=== PATIENT | male | born 1940 | race Caucasian/White ===

== ENCOUNTER 2017-10-26 10:19 | Emergency (ER) | payer MEDICARE, MEDICAID ==
[2017-10-26] MEDS ORDERED: IPRATROPIUM/ALBUTEROL 0.5-2.5 MG/3 ML AMPUL NEB ONE (10:53)
--- NOTE | 2017-10-26 10:54 | ER Document Report ---
ED Medical Screen (RME) - General Chief Complaint: Cough Stated Complaint: COUGH Time Seen by Provider: 10/26/17 10:46 Mode of Arrival: Ambulatory Information source: Patient Notes: 77-year-old male history of COPD presents with intermittent productive cough for the past few days. Patient notes that he went to [facility] recently and since then has been having wheezing shortness of breath I have greeted and performed a rapid initial assessment of this patient. A comprehensive ED assessment and evaluation of the patient, analysis of test results and completion of the medical decision making process will be conducted by additional ED providers. PHYSICAL EXAMINATION: GENERAL: Well-appearing, well-nourished and in no acute distress. HEAD: Atraumatic, normocephalic. EYES: Pupils equal round extraocular movements intact, conjunctiva are normal. ENT: Nares patent NECK: Normal range of motion LUNGS: No respiratory distress Musculoskeletal: Normal range of motion NEUROLOGICAL: Normal speech, normal gait. PSYCH: Normal mood, normal affect. SKIN: Warm, Dry, normal turgor, no rashes or lesions noted. - Related Data Allergies/Adverse Reactions: No Known Allergies Allergy (Verified 10/26/17 10:22) Past Medical History - Social History Chew tobacco use (# tins/day): No Frequency of alcohol use: None Drug Abuse: None - Past Medical History Cardiac Medical History: Reports: Hx Hypercholesterolemia, Hx Hypertension Pulmonary Medical History: Reports: Hx COPD Endocrine Medical History: Reports: Hx Diabetes Mellitus Type 2 Renal/ Medical History: Denies: Hx Peritoneal Dialysis GI Medical History: Reports: Hx Gastroesophageal Reflux Disease Past Surgical History: Reports: Hx Cholecystectomy Physical Exam - Vital signs Vitals: Temp Pulse Resp BP Pulse Ox 97.8 F 72 18 131/63 H 97 10/26/17 10:24 10/26/17 10:24 10/26/17 10:24 10/26/17 10:24 10/26/17 10:24 Course - Vital Signs Vital signs: Temp Pulse Resp BP Pulse Ox 97.8 F 72 18 131/63 H 97 10/26/17 10:24 10/26/17 10:24 10/26/17 10:24 10/26/17 10:24 10/26/17 10:24
--- NOTE | 2017-10-26 11:31 | ER Document Report ---
ED General - General Chief Complaint: Cough Stated Complaint: COUGH Time Seen by Provider: 10/26/17 10:46 Mode of Arrival: Ambulatory Information source: Patient Notes: 77-year-old male presents emergency department history of chills, rhinorrhea, sore throat, dry cough, generalized weakness x 10 days. Symptoms started while in [place]. Patient thinks that he might be developing pneumonia. He does have a history of COPD. He is not on any home oxygen. He uses albuterol inhaler as needed. Patient denies any chest pain. He has had some intermittent shortness of breath. No alleviating or exacerbating factors. TRAVEL OUTSIDE OF THE [place] IN LAST 30 DAYS: No - HPI Onset: Last week Onset/Duration: Gradual Quality of pain: No pain Severity: None Pain Level: Denies Associated symptoms: Chills, Nonproductive cough, Rhinnorhea, Shortness of breath, Sore throat, Weakness Exacerbated by: Denies Relieved by: Denies Similar symptoms previously: No Recently seen / treated by doctor: No - Related Data Allergies/Adverse Reactions: No Known Allergies Allergy (Verified 10/26/17 10:22) Past Medical History - General Information source: Patient - Social History Smoking Status: Former Smoker Chew tobacco use (# tins/day): No Frequency of alcohol use: None Drug Abuse: None Family History: Reviewed & Not Pertinent Patient has suicidal ideation: No Patient has homicidal ideation: No - Past Medical History Cardiac Medical History: Reports: Hx Hypercholesterolemia, Hx Hypertension Pulmonary Medical History: Reports: Hx COPD Endocrine Medical History: Reports: Hx Diabetes Mellitus Type 2 Renal/ Medical History: Denies: Hx Peritoneal Dialysis GI Medical History: Reports: Hx Gastroesophageal Reflux Disease Past Surgical History: Reports: Hx Cholecystectomy Review of Systems - Review of Systems Constitutional: Chills EENT: Nose congestion, Sinus discharge, Throat pain Respiratory: Cough, Short of breath Gastrointestinal: No symptoms reported Genitourinary: No symptoms reported Musculoskeletal: No symptoms reported Skin: No symptoms reported Neurological/Psychological: No symptoms reported -: Yes All other systems reviewed and negative Physical Exam - Vital signs Vitals: Temp Pulse Resp BP Pulse Ox 97.8 F 72 18 131/63 H 97 10/26/17 10:24 10/26/17 10:24 10/26/17 10:24 10/26/17 10:24 10/26/17 10:24 Interpretation: Normal - Notes Notes: PHYSICAL EXAMINATION: GENERAL: Well-appearing, well-nourished and in no acute distress. HEAD: Atraumatic, normocephalic. EYES: Pupils equal round and reactive to light, extraocular movements intact, sclera anicteric, conjunctiva are normal. ENT: Nares patent, oropharynx clear without exudates. Moist mucous membranes. NECK: Normal range of motion, supple without lymphadenopathy LUNGS: Breath sounds clear to auscultation bilaterally and equal. No wheezes rales or rhonchi. HEART: Regular rate and rhythm without murmurs ABDOMEN: Soft, nontender, nondistended abdomen. No guarding, no rebound. No masses appreciated. Musculoskeletal: Normal range of motion, no pitting or edema. No cyanosis. NEUROLOGICAL: Cranial nerves grossly intact. Normal speech, normal gait. Normal sensory, motor exams PSYCH: Normal mood, normal affect. SKIN: Warm, Dry, normal turgor, no rashes or lesions noted. Course - Vital Signs Vital signs: Temp Pulse Resp BP Pulse Ox 97.8 F 72 18 105/66 97 10/26/17 10:24 10/26/17 10:24 10/26/17 15:47 10/26/17 14:01 10/26/17 14:23 - Laboratory Result Diagrams: 10/26/17 11:05 10/26/17 11:05 Laboratory results interpreted by me: 10/26/17 10/26/17 10/26/17 11:05 11:05 12:27 RBC 3.95 L Hgb 12.5 L Hct 36.5 L Seg Neutrophils % 78.1 H Lymphocytes % 9.6 L D-Dimer 1.14 H Sodium 134.4 L Potassium 5.1 H Creatinine 1.35 H Est GFR (Non-Af Amer) 51 L Glucose 143 H Total Bilirubin 1.4 H Urine Glucose (UA) 10/26/17 12:45 RBC Hgb Hct Seg Neutrophils % Lymphocytes % D-Dimer Sodium Potassium Creatinine Est GFR (Non-Af Amer) Glucose Total Bilirubin Urine Glucose (UA) 50 H - EKG Interpretation by [place] EKG shows normal: Sinus rhythm Rate: Normal Rhythm: NSR Additional EKG results interpreted by me: 10/26/17 11:31 IA interval 168, QRS duration 102, QTc 434, ventricular rate 64, sinus rhythm, no ischemic changes. Discharge - Discharge Clinical Impression: Bronchitis Condition: Good Disposition: HOME, SELF-CARE Instructions: Bronchitis ([facility]) Prescriptions: Benzonatate [Tessalon Perles 100 mg Capsule] 100 mg PO Q8HP PRN #15 capsule PRN Reason: Azithromycin [Zithromax 250 mg Tablet] 250 mg PO ASDIR PRN #6 tablet PRN Reason: Prednisone 50 mg PO DAILY 5 Days #5 tablet Referrals: JULIANNA MELÉNDEZ MD [ACTIVE STAFF] - Follow up as needed
[2017-10-26 11:36] LABS: ABSOLUTE EOSINOPHILS # (AUTO) 0.1 10^3/uL (0.0-0.6); ABSOLUTE LYMPHOCYTES (AUTO) 0.8 10^3/uL (0.5-4.7); ABSOLUTE MONOCYTES (AUTO) 0.9 10^3/uL (0.1-1.4); ABSOLUTE NEUT (AUTO) 6.4 10^3/uL (1.7-8.2); BASOPHILS % (AUTO) 0.3 % (0-2); EOSINOPHILS % (AUTO) 1.6 % (0-6); HEMATOCRIT 36.5 % (37.9-51.0); HEMOGLOBIN 12.5 g/dL (13.5-17.0); LYMPHOCYTES % (AUTO) 9.6 % (13-45); MEAN CORPUSCULAR HEMOGLOBIN 31.6 pg (27.0-33.4); MEAN CORPUSCULAR HGB CONC 34.3 g/dL (32.0-36.0); MEAN CORPUSCULAR VOLUME 92 fl (80-97); MONOCYTES % (AUTO) 10.4 % (3-13); PLATELET COUNT 220 10^3/uL (150-450); RED BLOOD COUNT 3.95 10^6/uL (4.35-5.55); RED CELL DISTRIBUTION WIDTH 13.8 % (11.5-14.0); SEGMENTED NEUTROPHILS % (AUTO) 78.1 % (42-78); TOTAL CELLS COUNTED % (AUTO) 100 %; WHITE BLOOD COUNT 8.2 10^3/uL (4.0-10.5)
[2017-10-26 11:56] LABS: ALANINE AMINOTRANSFERASE 28 U/L (21-72); ALBUMIN 3.9 g/dL (3.5-5.0); ALKALINE PHOSPHATASE 62 U/L (38-126); ANION GAP 9 (5-19); ASPARTATE AMINO TRANSFERASE 19 U/L (17-59); BILIRUBIN,DIRECT 0.4 mg/dL (0.0-0.4); BILIRUBIN,TOTAL 1.4 mg/dL (0.2-1.3); BLOOD UREA NITROGEN 20 mg/dL (7-20); CALCIUM 9.6 mg/dL (8.4-10.2); CARBON DIOXIDE 25 mmol/L (22-30); CHLORIDE 100 mmol/L (98-107); CREATINE KINASE 73 U/L (55-170); GLUCOSE 143 mg/dL (75-110); POTASSIUM 5.1 mmol/L (3.6-5.0); SODIUM 134.4 mmol/L (137-145); TOTAL PROTEIN 6.8 g/dL (6.3-8.2)
[2017-10-26 12:12] LABS: CREATINE KINASE MB 0.96 ng/mL (<4.55); TROPONIN I < 0.012 ng/mL
--- NOTE | 2017-10-26 12:48 | RADIOLOGY REPORT (SQ) ---
EXAM DESCRIPTION: CHEST 2 VIEWS COMPLETED DATE/TIME: 10/26/2017 12:37 pm REASON FOR STUDY: shortness of breath COMPARISON: None. NUMBER OF VIEWS: Two view. TECHNIQUE: Frontal and lateral radiographic views of the chest acquired. LIMITATIONS: None. FINDINGS: LUNGS AND PLEURA: Chronic interstitial changes. No infiltrates, masses or pneumothorax. N o pleural effusion. Attenuated blood vessels and flattened sanjnaa-diaphragms. MEDIASTINUM AND HILAR STRUCTURES: No masses. No contour abnormalities. HEART AND VASCULAR STRUCTURES: Heart normal in size and contour. No evidence for failure. BONES: No acute findings. Degenerative changes in the spine. Sclerosis in the proximal left humerus probably due to an enchondroma or old bone infarct. HARDWARE: None in the chest. OTHER: No other significant finding. IMPRESSION: COPD. NO ACUTE RADIOGRAPHIC FINDING IN THE CHEST. TECHNICAL DOCUMENTATION: JOB ID: [id number] [email or web address]- All Rights Reserved Reading location - IP/workstation name: [email or web address]
[2017-10-26 12:59] LABS: APPEARANCE,URINE CLEAR; BILIRUBIN,URINE NEGATIVE (NEGATIVE); COLOR,URINE YELLOW; GLUCOSE, URINE 50 mg/dL (NEGATIVE); KETONES,URINE NEGATIVE (NEGATIVE); LEUKOCYTE ESTERASE,URINE NEGATIVE (NEGATIVE); NITRITE,URINE NEGATIVE (NEGATIVE); PROTEIN,URINE NEGATIVE (NEGATIVE); URINE SPECIFIC GRAVITY 1.008; UROBILINOGEN,URINE NEGATIVE mg/dL (<2.0)
[2017-10-26] MEDS ORDERED: NORMAL SALINE 500 ML IV ONE (13:01)
--- NOTE | 2017-10-26 16:12 | RADIOLOGY REPORT (SQ) ---
EXAM DESCRIPTION: NM LUNG VENT/PERF SCAN COMPLETED DATE/TIME: 10/26/2017 4:00 pm REASON FOR STUDY: shortness of breath COMPARISON: Chest films from earlier. RADIONUCLIDE AND DOSE: 5.36 millicuries TC-99m MAA Intravenous 31.8 millicuries TC-99m DTPA Inhaled aerosol TECHNIQUE: Eight views of the lungs acquired post ventilation of DTPA aerosol. Eight matching views of the lungs acquired following injection of MAA. LIMITATIONS: None. FINDINGS: VENTILATION: Symmetric and homogeneous distribution of DTPA aerosol during ventilatory pha se. No significant areas of photopenia. PERFUSION: Perfusion images with normal homogenous activity and no wedge-shaped or segmental defects. No ventilation-perfusion mismatches. OTHER: No other significant finding. IMPRESSION: NORMAL VENTILATION-PERFUSION LUNG SCAN. NEGATIVE FOR PULMONARY EMBOLI. TECHNICAL DOCUMENTATION: JOB ID: [id number] [employer]- All Rights Reserved Reading location - IP/workstation name: [email or web address]
[2017-10-26 16:30] VITALS: BP 128/74
--- NOTE | 2017-10-26 21:19 | EKG REPORT ---
SEVERITY:- OTHERWISE NORMAL ECG - SINUS RHYTHM VENTRICULAR PREMATURE COMPLEX : Confirmed by: Kaitlin Peters 26-Oct-2017 21:19:07
--- NOTE | 2017-10-26 21:20 | EKG REPORT ---
SEVERITY:- NORMAL ECG - SINUS RHYTHM : Confirmed by: Kaitlin Peters 26-Oct-2017 21:18:57
== END 2017-10-26 16:41 | disposition home or self-care (01) ==
LOC: ER 10:19
DX: J40 Bronchitis, not specified as acute or chronic (principal); R05 Cough; J34.89 Other specified disorders of nose and nasal sinuses; J02.9 Acute pharyngitis, unspecified; R53.1 Weakness; J44.9 Chronic obstructive pulmonary disease, unspecified; R09.81 Nasal congestion; R09.89 Other specified symptoms and signs involving the circulatory and respiratory systems; R06.02 Shortness of breath; Z99.81 Dependence on supplemental oxygen; Z87.891 Personal history of nicotine dependence; I10 Essential (primary) hypertension; E11.9 Type 2 diabetes mellitus without complications
CPT/HCPCS: 93005; 94640; 99284; 36415; 82553; 82550; 85025; 80053; 81001; 84484; 85379; 71046; 78582; 93010; A9540; A9567; J7040; A9270; J7620

== ENCOUNTER 2017-11-19 09:00 | Day surgery (SDC) | payer MEDICARE, MEDICAID ==
[~2017-11-19 09:00] MED LIST: DIPHENHYDRAMINE HCL 50 MG/ML VIAL ONE; EPINEPHRINE INJ 1 MG/10 ML DISP.SYRIN ONE; FLUMAZENIL INJ 0.5 MG/5 ML VIAL ONE; GLUCAGON,HUMAN RECOMB 1 MG INJ ONE; NALOXONE HCL INJ/PF 0.4 MG/1 ML SDV ONE; ONDANSETRON HCL INJ/PF 4 MG/2 ML SDV ONE
[2017-11-19] MEDS: MIDAZOLAM 2 MG/2 ML INJ ONE ×2 (09:24→09:30)
[2017-11-19] MEDS: FENTANYL CITRATE INJ/PF 100 MCG/2 ML AMPUL ONE ×2 (09:26→09:28)
--- NOTE | 2017-11-19 09:42 | Operative Report ---
Operative Report DATE OF SURGERY: 11/19/17 Operative Report: The risks benefits and alternatives of the procedure explained to the patient in detail and informed consent is obtained.A GIF Olympus video scope was inserted into the patient's mouth and hypopharynx, the esophagus is identified intubated and insufflated, the scope was then advanced through the esophagus stomach and duodenum, retroflexion maneuver is done, the esophagus stomach and first and second portions of the duodenum examined PREOPERATIVE DIAGNOSIS: Parish's esophagus, gastroesophageal reflux disease POSTOPERATIVE DIAGNOSIS: Gastritis status post biopsy. Hiatal hernia. Some islands of Parish's esophagus status post radiofrequency ablation OPERATION: EGD with ablation. EGD with biopsy SURGEON: VISHAL WEBER ANESTHESIA: Moderate Sedation - 4 mg of Versed, 50 mcg of fentanyl. Conscious sedation monitoring time 30 minutes. TISSUE REMOVED OR ALTERED: As noted above. COMPLICATIONS: None. ESTIMATED BLOOD LOSS: None. INTRAOPERATIVE FINDINGS: As noted above. PROCEDURE: Patient tolerated procedure well. No immediate postprocedure complications are noted. Patient discharged in good condition. Discharge date 11/19/2017. Discharge diet: Regular. Discharge activity: Regular. 2-3 week follow-up to discuss findings. Patient is instructed to call the office or proceed to the emergency room should there be any further problems or questions. We will wait on the pathology.
[2017-11-19 10:44] VITALS: BP 121/60
== END 2017-11-19 10:45 | disposition home or self-care (01) ==
LOC: END 09:00
PROVIDERS: ATTEND Internal Medicine Gastroenterology
DX: K29.50 Unspecified chronic gastritis without bleeding (principal); K22.719 Barrett's esophagus with dysplasia, unspecified; K44.9 Diaphragmatic hernia without obstruction or gangrene; K21.9 Gastro-esophageal reflux disease without esophagitis; E78.5 Hyperlipidemia, unspecified; E11.9 Type 2 diabetes mellitus without complications; M19.90 Unspecified osteoarthritis, unspecified site; K76.0 Fatty (change of) liver, not elsewhere classified; Z13.89 Encounter for screening for other disorder; I51.9 Heart disease, unspecified; J43.9 Emphysema, unspecified; Z87.891 Personal history of nicotine dependence; Z95.1 Presence of aortocoronary bypass graft
CPT/HCPCS: 43270; 43239; 82962; 88342 ×2; 88305 ×2; J2250; J3010; J0171; J1200; J1610; J2310; J2405; J3490

== ENCOUNTER → 2018-01-27 | Outpatient (CLI) | payer MEDICARE, MEDICAID ==
--- NOTE | 2018-01-27 14:39 | RADIOLOGY REPORT (SQ) ---
EXAM DESCRIPTION: CT CHEST WITHOUT COMPLETED DATE/TIME: 01/27/2018 2:25 pm REASON FOR STUDY: DYSPNEA R06.00 DYSPNEA, UNSPECIFIED COMPARISON: None. TECHNIQUE: CT scan performed of the chest without intravenous contrast. Images reviewed with lung, soft tissue and bone windows. Reconstructed coronal and sagittal MPR images reviewed. All images st ored on PACS. All CT scanners at this facility use dose modulation, iterative reconstruction, and/or weight based d osing when appropriate to reduce radiation dose to as low as reasonably achievable (ALARA). [facility]: Dose Right [facility]: CareDose [facility]: Dose Right [facility]: Teradose 4D [facility]: 37coins RADIATION DOSE: CT Rad equipment meets quality standard of care and radiation dose reduction techniq ues were employed. CTDIvol: 11.4 mGy. DLP: 460 mGy-cm. mGy. LIMITATIONS: No technical limitations. FINDINGS: LUNGS AND PLEURA: Centrilobular and paraseptal emphysema fairly symmetric. No suspicious nodules. No effusions. HILAR AND MEDIASTINAL STRUCTURES: No identified masses or abnormal nodes. No obvious aneurysm. HEART AND VASCULAR STRUCTURES: No aneurysm. No pericardial effusion. UPPER ABDOMEN: No significant findings. Limited exam. THYROID AND OTHER SOFT TISSUES: No masses. No adenopathy. BONES: No significant finding. HARDWARE: None in the chest. OTHER: No other significant findings. IMPRESSION: COPD. No acute findings in the chest. TECHNICAL DOCUMENTATION: JOB ID: [id number] Quality ID # [id number]: Final reports with documentation of one or more dose reduction techniques (e.g., Au tomated exposure control, adjustment of the mA and/or kV according to patient size, use of iterative reconstruction technique) 2010 [employer]- All Rights Reserved Reading location - IP/workstation name: [email or web address]
== END ==
LOC: RAD 14:14
PROVIDERS: ATTEND Physician Assistant
DX: R06.00 Dyspnea, unspecified (principal)
CPT/HCPCS: 71250

== ENCOUNTER → 2018-06-17 | Outpatient (CLI) | payer MEDICARE, MEDICAID ==
--- NOTE | 2018-06-18 09:05 | RADIOLOGY REPORT (SQ) ---
EXAM DESCRIPTION: MRI HEAD COMBO COMPLETED DATE/TIME: 06/17/2018 8:47 pm REASON FOR STUDY: H90.42 SNSRNRL HEAR LOSS, UNI, LEFT EAR, W UNRESTR HEAR CNTRA SIDE H90.42 SNSRNRL HEAR LOSS, UNI, LEFT EAR, W UNRESTR HEAR CNTR COMPARISON: None. TECHNIQUE: Multiplanar imaging includes noncontrasted T1, T2, FLAIR, diffusion with ADC map and post gadolinium contrast T1 sequences. Images stored on PACS. Additional thin section axial T2 and axial and coronal pre and postcontrast T1 weighted images throug h the internal auditory canals and inner ear structures. CONTRAST TYPE AND DOSE: 8 mL Dotarem. RENAL FUNCTION: GFR 38 LIMITATIONS: None. FINDINGS: ANATOMY: No anomalies. Normal vascular flow voids. Pituitary fossa normal. CSF SPACES: Normal in size and contour. No hemorrhage. CEREBRUM: Sulci and gyri normal in size and contour. Age-appropriate minimal biparietal small vessel disease with increased white matter signal on FLAIR imaging. No evidence of hemorrhage, mass, or ext raaxial fluid collection. No abnormal enhancement post contrast. POSTERIOR FOSSA: No signal alteration. No hemorrhage. No edema, masses, or mass effect. Internal kaylin tory canals, cerebellopontine angles normal. However, there is a right middle ear effusion and masto id effusion DIFFUSION IMAGING: Negative for acute or subacute infarction. ORBITS: No masses. Globes normal. PARANASAL SINUSES: No fluid levels. Mucosa normal. OTHER: No other significant finding. IMPRESSION: Large right middle ear and mastoid effusion No abnormal masses or enhancement along the internal auditory canals or inner ear structures Remainder the brain parenchyma is otherwise unremarkable EVIDENCE OF ACUTE STROKE: NO. TECHNICAL DOCUMENTATION: JOB ID: [id number] [employer]- All Rights Reserved Reading location - IP/workstation name: [email or web address]
== END ==
LOC: RAD 19:58
PROVIDERS: ATTEND Otolaryngology
DX: H90.42 Sensorineural hearing loss, unilateral, left ear, with unrestricted hearing on the contralateral side (principal)
CPT/HCPCS: 70553; 82565

== ENCOUNTER 2018-07-07 10:29 | Inpatient (IN) | payer MEDICARE, MEDICAID ==
[2018-07-07] MEDS ORDERED: ONDANSETRON HCL INJ/PF 4 MG/2 ML SDV IV ONE (11:11)
[2018-07-07] MEDS ORDERED: LOPERAMIDE HCL 2 MG CAPSULE PO ONE (11:11)
[2018-07-07] MEDS ORDERED: NORMAL SALINE 1000 ML 1,000 ML IV ONE ×2 (11:11→13:00)
[2018-07-07] MEDS ORDERED: ASPIRIN 81 MG TABLET, CHEWABLE PO ONE (11:11)
--- NOTE | 2018-07-07 11:54 | RADIOLOGY REPORT (SQ) ---
EXAM DESCRIPTION: CHEST SINGLE VIEW COMPLETED DATE/TIME: 07/07/2018 11:44 am REASON FOR STUDY: SOB, cough COMPARISON: CT chest 01/27/2018 Chest films 10/26/2017 EXAM PARAMETERS: NUMBER OF VIEWS: One view. TECHNIQUE: Single frontal radiographic view of the chest acquired. RADIATION DOSE: NA LIMITATIONS: None. FINDINGS: LUNGS AND PLEURA: Marked changes of obstructive lung disease. Stable bibasilar increased interstitial markings. No acute infiltrates. No pleural effusion. No pneumothorax. MEDIASTINUM AND HILAR STRUCTURES: No masses. Contour normal. HEART AND VASCULAR STRUCTURES: Heart normal in size. Normal vasculature. BONES: Benign chondroid lesion left proximal humerus HARDWARE: None in the chest. OTHER: No other significant finding. IMPRESSION: Obstructive lung disease. No acute findings TECHNICAL DOCUMENTATION: JOB ID: [id number] [employer]- All Rights Reserved Reading location - IP/workstation name: [email or web address]
[2018-07-07 11:59] LABS: HEMATOCRIT 45.4 % (37.9-51.0); HEMOGLOBIN 15.6 g/dL (13.5-17.0); MEAN CORPUSCULAR HEMOGLOBIN 31.6 pg (27.0-33.4); MEAN CORPUSCULAR HGB CONC 34.3 g/dL (32.0-36.0); MEAN CORPUSCULAR VOLUME 92 fl (80-97); PLATELET COUNT 259 10^3/uL (150-450); RED BLOOD COUNT 4.93 10^6/uL (4.35-5.55); RED CELL DISTRIBUTION WIDTH 14.3 % (11.5-14.0); WHITE BLOOD COUNT 24.6 10^3/uL (4.0-10.5)
[2018-07-07 12:18] LABS: ALANINE AMINOTRANSFERASE 49 U/L (21-72); ALBUMIN 3.9 g/dL (3.5-5.0); ALKALINE PHOSPHATASE 97 U/L (38-126); ANION GAP 15 (5-19); ASPARTATE AMINO TRANSFERASE 25 U/L (17-59); BILIRUBIN,DIRECT 0.2 mg/dL (0.0-0.4); BILIRUBIN,TOTAL 1.5 mg/dL (0.2-1.3); BLOOD UREA NITROGEN 32 mg/dL (7-20); CALCIUM 9.2 mg/dL (8.4-10.2); CARBON DIOXIDE 19 mmol/L (22-30); CHLORIDE 99 mmol/L (98-107); CREATINE KINASE 53 U/L (55-170); GLUCOSE 207 mg/dL (75-110); LIPASE 27.8 U/L (23-300); POTASSIUM 4.8 mmol/L (3.6-5.0); SODIUM 132.8 mmol/L (137-145); TOTAL PROTEIN 6.5 g/dL (6.3-8.2)
[2018-07-07 12:21] LABS: ABSOLUTE LYMPHOCYTES# (MANUAL) 0.2 10^3/uL (0.5-4.7); ABSOLUTE NEUTROPHILS# (MANUAL) 22.4 10^3/uL (1.7-8.2); BASOPHILS % (MANUAL) 0 % (0-2); EOSINOPHILS % (MANUAL) 0 % (0-6); LYMPHOCYTES % (MANUAL) 1 % (13-45); MONOCYTES % (MANUAL) 8 % (3-13); SEGMENTED NEUTROPHILS % (MAN) 91 % (42-78); TOTAL CELLS COUNTED 100
[2018-07-07 12:23] LABS: ANISOCYTOSIS SLIGHT; BURR CELLS SLIGHT; OVALOCYTES SLIGHT; PLATELET COMMENT ADEQUATE; POIKILOCYTOSIS SLIGHT; POLYCHROMASIA SLIGHT
[2018-07-07 12:29] LABS: CREATINE KINASE MB 1.42 ng/mL (<4.55)
[2018-07-07 12:34] LABS: TROPONIN I < 0.012 ng/mL
--- NOTE | 2018-07-07 12:58 | ER Document Report ---
ED General - General Chief Complaint: Shortness Of Breath Stated Complaint: WEAKNESS Time Seen by Provider: 07/07/18 11:04 Mode of Arrival: Wheelchair Notes: 78M w COPD on 2.5L O2 at night, CAD s/p stent in 2013, NIDDM presents to ED for c/c nausea, vomiting, diarrhea x 3 days. Started w diarrhea then progressed to nausea/vomiting. Cannot hold any liquid or food down at all including medications. Pt also c/o SOB due to weakness and fatigue. No previous COPD exacerbations requiring hospitalization. Pt also with recent dx of acute sinusitis currently on abx, day ~11/15. Of note, pt has chronic left leg swelling. Patient denies fevers or chills. Patient denies headache. No chest pain. Patient denies any current sinus pressure. Patient has no other complaints. TRAVEL OUTSIDE OF THE [place] IN LAST 30 DAYS: No - Related Data Allergies/Adverse Reactions: No Known Allergies Allergy (Verified 07/07/18 10:34) Past Medical History - General Information source: Patient - Social History Smoking Status: Current Every Day Smoker Family History: Reviewed & Not Pertinent Patient has suicidal ideation: No Patient has homicidal ideation: No - Past Medical History Cardiac Medical History: Reports: Hx Atrial Fibrillation, Hx Hyp ercholesterolemia, Hx Hypertension Denies: Hx Coronary Artery Disease, Hx Heart Attack Pulmonary Medical History: Reports: Hx COPD Denies: Hx Pneumonia - HX Neurological Medical History: Denies: Hx Cerebrovascular Accident, Hx Seizures Endocrine Medical History: Reports: Hx Diabetes Mellitus Type 2 Renal/ Medical History: Denies: Hx Peritoneal Dialysis GI Medical History: Reports: Hx Gastroesophageal Reflux Disease Musculoskeletal Medical History: Reports Hx Arthritis - HIPS, BACK Past Surgical History: Reports: Hx Cardiac Catheterization - stent, Hx Cholecystectomy, Hx Orthopedic Surgery, Hx Tonsillectomy - Immunizations Hx Diphtheria, Pertussis, Tetanus Vaccination: Yes Review of Systems - Review of Systems Constitutional: See HPI EENT: See HPI Cardiovascular: See HPI Respiratory: See HPI Gastrointestinal: See HPI Genitourinary: No symptoms reported Male Genitourinary: No symptoms reported Musculoskeletal: No symptoms reported Skin: No symptoms reported Hematologic/Lymphatic: No symptoms reported Neurological/Psychological: No symptoms reported Physical Exam - Vital signs Vitals: Resp Pulse Ox 24 H 96 07/07/18 11:54 07/07/18 11:54 - Notes Notes: PHYSICAL EXAMINATION: Reviewed vital signs and charting by RN GENERAL: Alert, interacts well. No acute distress. Well-appearing HEAD: Normocephalic, atraumatic. EYES: Pupils equal, round. Extraocular movements intact. ENT: Oral mucosa dry, tongue midline. NECK: Full range of motion. Supple. Trachea midline. LUNGS: Clear to auscultation bilaterally, no wheezes, rales, or rhonchi. No respiratory distress. HEART: Regular rate and rhythm. No murmur ABDOMEN: soft, non-tender. Non-distended. Bowel sounds present in all 4 quadrants. no McBurney's point tenderness, no Hinton sign. EXTREMITIES: Moves all 4 extremities spontaneously. No edema, No cyanosis. PSYCH: Normal affect, normal mood. SKIN: Warm, dry, normal turgor. No rashes or lesions noted. Course - Re-evaluation Re-evalutation: 07/07/18 12:59 Well-appearing male presents with acute episode of nausea vomiting diarrhea. Patient received Zofran and reports feeling better. I called Dr. Mannie Ambrose, his insole tack puller hand, to obtain results from recent echo and Dr. Ambrose reported over the phone that his ejection fraction was 60-65% with mild aortic root dilatation. With this information I will give the patient 1 L of fluids. On exam lungs were clear to auscultation bilaterally in all [place] 07/07/18 15:58 Patient ultimately received 2 L of normal saline. I called hospitalist to discuss admission as patient is C. difficile positive and has a white count of 24,600. Wiliam Maurer PA-C, went and saw patient and accepted patient for full admission. - Vital Signs Vital signs: Temp Pulse Resp BP Pulse Ox 98.0 F 80 18 129/67 H 95 07/07/18 17:58 07/07/18 17:58 07/07/18 17:58 07/07/18 17:58 07/07/18 17:58 - Laboratory Result Diagrams: 07/07/18 11:23 07/07/18 11:23 Laboratory results interpreted by me: 07/07/18 07/07/18 11:23 11:23 WBC 24.6 H RDW 14.3 H Seg Neuts % (Manual) 91 H Lymphocytes % (Manual) 1 L Abs Neuts (Manual) 22.4 H Abs Lymphs (Manual) 0.2 L Abs Monocytes (Manual) 2.0 H Sodium 132.8 L Carbon Dioxide 19 L BUN 32 H Creatinine 2.32 H Est GFR ( Amer) 33 L Est GFR (Non-Af Amer) 27 L Glucose 207 H Total Bilirubin 1.5 H Creatine Kinase 53 L Discharge - Discharge Clinical Impression: C. difficile diarrhea, Weakness Vomiting Qualifiers: Vomiting type: unspecified Vomiting Intractability: non-intractable Nausea presence: with nausea Qualified Code(s): R11.2 - Nausea with vomiting, unspecified Condition: Good Disposition: ADMITTED INPATIENT Unit Admitted: Telemetry
--- NOTE | 2018-07-07 14:05 | ER Document Report ---
Entered by CONTRERAS ESCALONA SCRIBE 07/07/18 1143 Acting as scribe for:SHIVA CALHOUN DO ED Medical Screen (RME) - General Chief Complaint: Shortness Of Breath Stated Complaint: WEAKNESS Time Seen by Provider: 07/07/18 11:04 Primary Care Provider: TRE FELIZ DO [Primary Care Provider] - Follow up as needed Mode of Arrival: Wheelchair Information source: Patient Notes: Patient is a 78-year-old male with COPD, heart disease, diabetes type 2, presents to the emergency department complaining of nausea, vomiting and diarrhea onset 3 days ago. Patient states he initially had diarrhea 3 days ago and developed nausea and vomiting 1 day ago. He states he is unable to keep any solids or liquids down. He also complains of abdominal pain and increased shortness of breath. Patient reports currently being on antibiotics for recent sinus infection. He states he is on 2.5 L of O2 at night. He also reports chronic left leg swelling. I have greeted and performed a rapid initial assessment of the patient. A comprehensive ED assessment and evaluation of the patient, analysis of test results, and completion of the medical decision making process will be conducted by additional ED providers. GENERAL: Alert, interacts well. No acute distress. HEAD: Normocephalic, atraumatic. EYES: Pupils equal, round, and reactive to light. Extraocular movements intact. ENT: Oral mucosa moist, tongue midline. Clear rhinorrhea from right nostril. NECK: Full range of motion. Supple. Trachea midline. LUNGS: Clear to auscultation bilaterally, no wheezes, rales, or rhonchi. No respiratory distress. HEART: Regular rate and rhythm. No murmurs, gallops, or rubs. EXTREMITIES: Moves all 4 extremities spontaneously. 1+ pitting edema of the LLE. NEUROLOGICAL: Alert and oriented x3. Normal speech. PSYCH: Normal affect, normal mood. SKIN: Warm, dry, normal turgor. No rashes or lesions noted. TRAVEL OUTSIDE OF THE [place] IN LAST 30 DAYS: No - Related Data Allergies/Adverse Reactions: No Known Allergies Allergy (Verified 07/07/18 10:34) Past Medical History - Past Medical History Cardiac Medical History: Reports: Hx Atrial Fibrillation, Hx Hypercholesterolemia, Hx Hypertension Denies: Hx Coronary Artery Disease, Hx Heart Attack Pulmonary Medical History: Reports: Hx COPD Denies: Hx Pneumonia - HX Neurological Medical History: Denies: Hx Cerebrovascular Accident, Hx Seizures Endocrine Medical History: Reports: Hx Diabetes Mellitus Type 2 Renal/ Medical History: Denies: Hx Peritoneal Dialysis GI Medical History: Reports: Hx Gastroesophageal Reflux Disease Musculoskeltal Medical History: Reports Hx Arthritis - HIPS, BACK Past Surgical History: Reports: Hx Cardiac Catheterization - stent, Hx Cholecystectomy, Hx Orthopedic Surgery, Hx Tonsillectomy - Immunizations Hx Diphtheria, Pertussis, Tetanus Vaccination: Yes Influenza Administration Date for 02/2017 - 07/2017 Season: 02/02/17 Doctor's Discharge - Discharge Referrals: TRE FELIZ DO [Primary Care Provider] - Follow up as needed I personally performed the services described in the documentation, reviewed and edited the documentation which was dictated to the scribe in my presence, and it accurately records my words and actions.
[2018-07-07] MEDS ORDERED: ACETAMINOPHEN 325 MG TABLET PO PRN (16:09)
[2018-07-07] MEDS ORDERED: ONDANSETRON 4 MG TAB.RAPDIS PO PRN (16:09)
[2018-07-07] MEDS ORDERED: DEXTROSE 40% GEL 15 GM TUBE PO PRN ×2 (16:18)
[2018-07-07] MEDS ORDERED: GLUCAGON,HUMAN RECOMB 1 MG INJ IM PRN (16:18)
[2018-07-07] MEDS ORDERED: DEXTROSE 50%-WATER 25 GM/50 ML DISP.SYRIN IV PRN ×2 (16:18)
[2018-07-07] MEDS ORDERED: ALBUTEROL SULFATE HFA (90 MCG/PUFF) 8 GM MDI (1 MDI/ER DISP) IH PRN (16:19)
--- NOTE | 2018-07-07 16:41 | PDOC H&P ---
History of Present Illness Admission Date/PCP: 07/07/18 Patient complains of: diarrhea/vomiting/nausea History of Present Illness: SHRUTHI EVANS is a 78 year old male Patient presented to the ER with a complaint of nausea/vomiting/weakness. This has been going on for the pats 3 days. Nothing makes it better or worse. He has ot been able to take his medications or eat for the past 3 days due to vomiting. Last week he was started on amoxicillin for 14 days for sinusities. the diarrhea and vomiting started approx 1 week later. No one else in the house has been sick. He states he has been having diarrhea almost every 40 minutes throughout the day Past Medical History Cardiac Medical History: Reports: Atrial Fibrillation, Hyperlipidema, Hyperten drew Denies: Coronary Artery Disease, Myocardial Infarction Pulmonary Medical History: Reports: Chronic Obstructive Pulmonary Disease (COPD) Denies: Pneumonia - HX Neurological Medical History: Denies: Seizures Endocrine Medical History: Reports: Diabetes Mellitus Type 2 GI Medical History: Reports: Gastroesophageal Reflux Disease Musculoskeltal Medical History: Reports: Arthritis - HIPS, BACK Hematology: Denies: Anemia Past Surgical History Past Surgical History: Reports: Cardiac Catheterization - stent, Cholecystectomy, Orthopedic Surgery, Tonsillectomy Social History Smoking Status: Current Every Day Smoker Family History Family History: DM, Hypertension Parental Family History Reviewed: Yes Children Family History Reviewed: Yes Sibling(s) Family History Reviewed.: Yes Medication/Allergy Home Medications: Albuterol Sulfate [Proair HFA] 1 - 2 puff IH Q4 PRN 11/19/17 Alprazolam 1 mg PO BID 11/19/17 Amlodipine Besylate 5 mg PO DAILY 11/19/17 Aspirin [Aspirin EC] 81 mg PO DAILY 11/19/17 Atorvastatin Calcium 40 mg PO QHS 11/19/17 Diclofenac Sodium 75 mg PO DAILY 11/19/17 Finasteride 5 mg PO DAILY 11/19/17 Lisinopril 0.5 tab PO DAILY 11/19/17 Nitroglycerin 0.4 mg SL ASDIR PRN 11/19/17 Pantoprazole Sodium 40 mg PO DAILY 11/19/17 Pioglitazone HCl 15 mg PO DAILY 11/19/17 Ranolazine [Ranexa] 500 mg PO DAILY 11/19/17 Tamsulosin HCl 0.4 mg PO DAILY 11/19/17 Umeclidinium Brm/Vilanterol Tr [Anoro Ellipta 62.5-25 Mcg INH] 1 each IH DAILY 11/19/17 Allergies/Adverse Reactions: No Known Allergies Allergy (Verified 07/07/18 10:34) Review of Systems Constitutional: PRESENT: anorexia, fatigue. ABSENT: chills, fever(s), headache(s), night sweats Eyes: ABSENT: visual disturbances Nose, Mouth, and Throat: PRESENT: headache(s) Cardiovascular: ABSENT: chest pain, edema, orthropnea, palpitations Gastrointestinal: PRESENT: abdominal pain, diarrhea, nausea, vomiting. ABSENT: coffee ground emesis Genitourinary: ABSENT: difficulty urinating, dysuria Integumentary: ABSENT: diaphoresis, pruritus Neurological: ABSENT: abnormal gait Psychiatric: ABSENT: anxiety Endocrine: ABSENT: polydipsia, polyuria Hematologic/Lymphatic: ABSENT: easy bleeding, easy bruising Physical Exam Vital Signs: Temp Pulse Resp BP Pulse Ox 18 129/63 H 85 L 07/07/18 14:01 07/07/18 14:01 07/07/18 14:01 Intake & Output 07/06/18 07/07/18 07/08/18 06:59 06:59 06:59 Intake Total 3000 Balance 3000 Weight 85.275 kg General appearance: PRESENT: no acute distress, cooperative, obese, well- developed Eye exam: PRESENT: EOMI, PERRLA. ABSENT: scleral icterus Mouth exam: PRESENT: dry mucosa, neck supple Neck exam: PRESENT: full ROM. ABSENT: JVD, tenderness, thyromegaly, tracheal deviation Respiratory exam: PRESENT: clear to auscultation annita Cardiovascular exam: PRESENT: RRR GI/Abdominal exam: PRESENT: soft, tenderness. ABSENT: distended Extremities exam: ABSENT: calf tenderness, tenderness Neurological exam: PRESENT: alert, oriented to person, oriented to place, oriented to time, oriented to situation Skin exam: PRESENT: dry, normal color, warm Results Laboratory Results: 07/07/18 11:23 07/07/18 11:23 07/07/18 07/07/18 07/07/18 11:23 11:23 13:23 WBC 24.6 H RBC 4.93 Hgb 15.6 Hct 45.4 MCV 92 MCH 31.6 MCHC 34.3 RDW 14.3 H Plt Count 259 Seg Neutrophils % Not Reportable Lymphocytes % Not Reportable Monocytes % Not Reportable Eosinophils % Not Reportable Basophils % Not Reportable Absolute Neutrophils Not Reportable Absolute Lymphocytes Not Reportable Absolute Monocytes Not Reportable Absolute Eosinophils Not Reportable Absolute Basophils Not Reportable Sodium 132.8 L Potassium 4.8 Chloride 99 Carbon Dioxide 19 L Anion Gap 15 BUN 32 H Creatinine 2.32 H Est GFR ( Amer) 33 L Est GFR (Non-Af Amer) 27 L Glucose 207 H Lactic Acid 1.5 Calcium 9.2 Total Bilirubin 1.5 H AST 25 ALT 49 Alkaline Phosphatase 97 Total Protein 6.5 Albumin 3.9 Lipase 27.8 07/07/18 07/07/18 11:23 11:23 Creatine Kinase 53 L CK-MB (CK-2) 1.42 Troponin I < 0.012 Impressions: Chest X-Ray 07/07/18 11:11 IMPRESSION: Obstructive lung disease. No acute findings Assessment & Plan - Diagnosis (1) C. difficile diarrhea Is this a current diagnosis for this admission?: Yes Plan: will admit to medicine services due to neil and diarrhea. start on oral vancomycin and monitor (2) Diabetes Qualifiers: Diabetes mellitus type: type 2 Diabetes mellitus complication status: without complication Is this a current diagnosis for this admission?: Yes Plan: will hold home medications due to neil and start on SSI with FSBGL (3) Atrial fibrillation Is this a current diagnosis for this admission?: Yes Plan: currently rate controlled. holding ranexa due to renal failure. will monitor closely (4) Hypertension Qualifiers: Hypertension type: essential hypertension Qualified Code(s): I10 - Essential (primary) hypertension Is this a current diagnosis for this admission?: Yes Plan: continue amlodipine and monitoring (5) NEIL (acute kidney injury) Is this a current diagnosis for this admission?: Yes Plan: will hydrate and monitor. he has a history of CHF so will monitor for signs of fluid overload. - Time Time Spent: 50 to 70 Minutes Medications reviewed and adjusted accordingly: Yes Anticipated discharge: Home
[2018-07-07] MEDS ORDERED: ALBUTEROL SULFATE HFA (90 MCG/PUFF) 200 PUFF/8.5 GM MDI IH PRN (17:19)
[2018-07-07] MEDS: NORMAL SALINE 1000 ML 1,000 ML IV PRN (18:49)
[2018-07-07] MEDS: VANCOMYCIN HCL INJ 500 MG VIAL PO SCH ×2 (19:50→23:44)
[2018-07-07] MEDS: HEPARIN SOD (PORCINE) 5,000 UNIT/ML 1 ML SYRINGE SUBCUT SCH (21:32)
[2018-07-07] MEDS: INSULIN REG, HUMAN 100 UNIT/ML 3 ML VIAL (PYX) SUBCUT SCH (21:32)
[2018-07-07] MEDS: ALPRAZOLAM 0.5 MG TABLET PO SCH (21:33)
--- NOTE | 2018-07-08 01:31 | EKG REPORT ---
SEVERITY:- OTHERWISE NORMAL ECG - SINUS RHYTHM VENTRICULAR PREMATURE COMPLEX : Confirmed by: Penny Samuel MD 08-Jul-2018 01:31:12
[2018-07-08] MEDS: VANCOMYCIN HCL INJ 500 MG VIAL PO SCH ×4 (05:13→23:42)
[2018-07-08] MEDS: HEPARIN SOD (PORCINE) 5,000 UNIT/ML 1 ML SYRINGE SUBCUT SCH ×3 (05:13→22:05)
[2018-07-08] MEDS: LANSOPRAZOLE 30 MG TAB.RAP.DR PO SCH (05:13)
[2018-07-08 06:59] LABS: ANION GAP 7 (5-19); BLOOD UREA NITROGEN 32 mg/dL (7-20); CALCIUM 8.1 mg/dL (8.4-10.2); CARBON DIOXIDE 21 mmol/L (22-30); CHLORIDE 105 mmol/L (98-107); GLUCOSE 158 mg/dL (75-110); POTASSIUM 4.6 mmol/L (3.6-5.0); SODIUM 133.1 mmol/L (137-145)
[2018-07-08 07:10] LABS: ABSOLUTE EOSINOPHILS # (AUTO) 0.1 10^3/uL (0.0-0.6); ABSOLUTE MONOCYTES (AUTO) 1.3 10^3/uL (0.1-1.4); ABSOLUTE NEUT (AUTO) 13.3 10^3/uL (1.7-8.2); BASOPHILS % (AUTO) 0.3 % (0-2); EOSINOPHILS % (AUTO) 0.4 % (0-6); HEMATOCRIT 36.6 % (37.9-51.0); LYMPHOCYTES % (AUTO) 6.2 % (13-45); MEAN CORPUSCULAR HEMOGLOBIN 31.8 pg (27.0-33.4); MEAN CORPUSCULAR HGB CONC 34.8 g/dL (32.0-36.0); MEAN CORPUSCULAR VOLUME 91 fl (80-97); MONOCYTES % (AUTO) 8.3 % (3-13); PLATELET COUNT 167 10^3/uL (150-450); RED BLOOD COUNT 4.02 10^6/uL (4.35-5.55); RED CELL DISTRIBUTION WIDTH 14.7 % (11.5-14.0); SEGMENTED NEUTROPHILS % (AUTO) 84.8 % (42-78); TOTAL CELLS COUNTED % (AUTO) 100 %; WHITE BLOOD COUNT 15.7 10^3/uL (4.0-10.5)
[2018-07-08] MEDS: INSULIN REG, HUMAN 100 UNIT/ML 3 ML VIAL (PYX) SUBCUT SCH ×4 (07:35→21:32)
[2018-07-08 07:50] LABS: HEMOGLOBIN 12.8 g/dL (13.5-17.0)
[2018-07-08] MEDS: TAMSULOSIN HCL 0.4 MG CAP.SR.24H PO SCH (09:12)
[2018-07-08] MEDS: ASPIRIN 81 MG TABLET, ENT COATED PO SCH (09:12)
[2018-07-08] MEDS: AMLODIPINE BESYLATE 5 MG TABLET PO SCH (09:13)
[2018-07-08] MEDS ORDERED: (PENDING PHARMACY ID) (Umeclidinium Brm/Vilanterol Tr [Anoro Ellipta 62.5-25 Mcg Inh] 1 EA IH SCH (10:00)
[2018-07-08] MEDS: NORMAL SALINE 1000 ML 1,000 ML IV PRN (14:04)
--- NOTE | 2018-07-08 16:33 | PDOC PROGRESS REPORT ---
Subjective Progress Note for:: 07/08/18 Subjective:: Hospital day #1. Patient states he feels much better today. He still having diarrhea had 6 episodes between last night and this morning. No nausea or vomiting. Has been able to tolerate a little bit of oral foods. Denies any pain any dizziness. Overall states that he is heading in the in the right direction. Reason For Visit: C.DIFFICILE DIARRHEA WITH NEIL Physical Exam Vital Signs: Temp Pulse Resp BP Pulse Ox 99.5 F 60 17 116/56 L 100 07/08/18 11:48 07/08/18 11:48 07/08/18 11:48 07/08/18 11:48 07/08/18 11:48 Intake & Output 07/07/18 07/08/18 07/09/18 06:59 06:59 06:59 Intake Total 3225 1266 Output Total 3 2 Balance 3222 1264 Weight 69.6 kg 69.6 kg General appearance: PRESENT: no acute distress, cooperative Mouth exam: PRESENT: moist, neck supple Neck exam: PRESENT: full ROM. ABSENT: JVD, thyromegaly Respiratory exam: PRESENT: clear to auscultation annita, unlabored Cardiovascular exam: PRESENT: irregular rhythm GI/Abdominal exam: PRESENT: hyperactive bowel sounds, soft. ABSENT: tenderness Extremities exam: ABSENT: pedal edema Psychiatric exam: ABSENT: agitated, anxious Results Laboratory Results: 07/08/18 05:58 07/08/18 05:58 07/08/18 07/08/18 05:58 05:58 WBC 15.7 H RBC 4.02 L Hgb 12.8 L D Hct 36.6 L MCV 91 MCH 31.8 MCHC 34.8 RDW 14.7 H Plt Count 167 Seg Neutrophils % 84.8 H Lymphocytes % 6.2 L Monocytes % 8.3 Eosinophils % 0.4 Basophils % 0.3 Absolute Neutrophils 13.3 H Absolute Lymphocytes 1.0 Absolute Monocytes 1.3 Absolute Eosinophils 0.1 Absolute Basophils 0.0 Sodium 133.1 L Potassium 4.6 Chloride 105 Carbon Dioxide 21 L Anion Gap 7 BUN 32 H Creatinine 2.07 H Est GFR ( Amer) 38 L Est GFR (Non-Af Amer) 31 L Glucose 158 H Calcium 8.1 L Magnesium 1.8 07/07/18 07/07/18 07/07/18 11:23 11:23 15:43 Creatine Kinase 53 L CK-MB (CK-2) 1.42 Troponin I < 0.012 < 0.012 Impressions: Chest X-Ray 07/07/18 11:11 IMPRESSION: Obstructive lung disease. No acute findings Assessment & Plan - Diagnosis (1) C. difficile diarrhea Is this a current diagnosis for this admission?: Yes Plan: Continue oral vancomycin. Monitor output. Hopeful discharge within the next 48 hours. (2) Diabetes Qualifiers: Diabetes mellitus type: type 2 Diabetes mellitus complication status: without complication Is this a current diagnosis for this admission?: Yes Plan: Tinea sliding scale insulin. Due to renal failure continuing to hold metformin. (3) Atrial fibrillation Is this a current diagnosis for this admission?: Yes Plan: Currently rate controlled we will continue to monitor. Holding home antiarrhythmics due to acute kidney injury. (4) Hypertension Qualifiers: Hypertension type: essential hypertension Qualified Code(s): I10 - Essential (primary) hypertension Is this a current diagnosis for this admission?: Yes (5) NEIL (acute kidney injury) Is this a current diagnosis for this admission?: Yes Plan: Still with some improvement in renal function not quite back to baseline yet we will continue hydration and monitoring. - Time Time Spent with patient: 25-34 minutes Medications reviewed and adjusted accordingly: Yes Anticipated discharge: Home
[2018-07-08] MEDS: ALPRAZOLAM 0.5 MG TABLET PO SCH (22:05)
[2018-07-09] MEDS: NORMAL SALINE 1000 ML 1,000 ML IV PRN ×2 (04:00→15:17)
[2018-07-09] MEDS: VANCOMYCIN HCL INJ 500 MG VIAL PO SCH ×4 (05:29→23:22)
[2018-07-09] MEDS: HEPARIN SOD (PORCINE) 5,000 UNIT/ML 1 ML SYRINGE SUBCUT SCH ×3 (05:30→22:31)
[2018-07-09] MEDS: LANSOPRAZOLE 30 MG TAB.RAP.DR PO SCH (05:30)
[2018-07-09 07:59] LABS: ABSOLUTE BASOPHILS # (AUTO) 0.1 10^3/uL (0.0-0.2); ABSOLUTE EOSINOPHILS # (AUTO) 0.1 10^3/uL (0.0-0.6); ABSOLUTE NEUT (AUTO) 9.6 10^3/uL (1.7-8.2); BASOPHILS % (AUTO) 0.6 % (0-2); HEMATOCRIT 33.1 % (37.9-51.0); HEMOGLOBIN 11.5 g/dL (13.5-17.0); LYMPHOCYTES % (AUTO) 8.6 % (13-45); MEAN CORPUSCULAR HEMOGLOBIN 31.5 pg (27.0-33.4); MEAN CORPUSCULAR HGB CONC 34.7 g/dL (32.0-36.0); MEAN CORPUSCULAR VOLUME 91 fl (80-97); MONOCYTES % (AUTO) 8.7 % (3-13); PLATELET COUNT 172 10^3/uL (150-450); RED BLOOD COUNT 3.65 10^6/uL (4.35-5.55); RED CELL DISTRIBUTION WIDTH 14.8 % (11.5-14.0); SEGMENTED NEUTROPHILS % (AUTO) 81.1 % (42-78); TOTAL CELLS COUNTED % (AUTO) 100 %; WHITE BLOOD COUNT 11.9 10^3/uL (4.0-10.5)
[2018-07-09] MEDS: INSULIN REG, HUMAN 100 UNIT/ML 3 ML VIAL (PYX) SUBCUT SCH ×4 (08:00→22:27)
[2018-07-09 08:15] LABS: BLOOD UREA NITROGEN 27 mg/dL (7-20); CALCIUM 8.2 mg/dL (8.4-10.2); CHLORIDE 107 mmol/L (98-107); GLUCOSE 151 mg/dL (75-110); POTASSIUM 4.6 mmol/L (3.6-5.0)
[2018-07-09 08:54] LABS: ANION GAP 5 (5-19); CARBON DIOXIDE 21 mmol/L (22-30); SODIUM 132.6 mmol/L (137-145)
[2018-07-09] MEDS: TAMSULOSIN HCL 0.4 MG CAP.SR.24H PO SCH (10:04)
[2018-07-09] MEDS: ASPIRIN 81 MG TABLET, ENT COATED PO SCH (10:04)
[2018-07-09] MEDS: AMLODIPINE BESYLATE 5 MG TABLET PO SCH (10:04)
--- NOTE | 2018-07-09 12:16 | PDOC PROGRESS REPORT ---
Subjective Progress Note for:: 07/09/18 Subjective:: Hospital day #2. Patient states he feels much better today. He still having diarrhea had 6 episodes between last night and this morning and another 7 after breakfast. No nausea or vomiting. Has been able to tolerate a little bit of oral foods. Denies any pain or any dizziness. Overall states that he is heading in the in the right direction. Reason For Visit: C.DIFFICILE DIARRHEA WITH NEIL Physical Exam Vital Signs: Temp Pulse Resp BP Pulse Ox 98.8 F 50 L 16 117/59 L 94 07/08/18 23:44 07/08/18 23:44 07/08/18 23:44 07/08/18 23:44 07/08/18 23:44 Intake & Output 07/08/18 07/09/18 07/10/18 06:59 06:59 06:59 Intake Total 3225 2845 Output Total 3 2 Balance 3222 2843 Weight 69.6 kg 71.1 kg Results Laboratory Results: 07/09/18 07:25 07/09/18 07:25 07/09/18 07/09/18 07:25 07:25 WBC 11.9 H RBC 3.65 L Hgb 11.5 L Hct 33.1 L MCV 91 MCH 31.5 MCHC 34.7 RDW 14.8 H Plt Count 172 Seg Neutrophils % 81.1 H Lymphocytes % 8.6 L Monocytes % 8.7 Eosinophils % 1.0 Basophils % 0.6 Absolute Neutrophils 9.6 H Absolute Lymphocytes 1.0 Absolute Monocytes 1.0 Absolute Eosinophils 0.1 Absolute Basophils 0.1 Sodium 132.6 L Potassium 4.6 Chloride 107 Carbon Dioxide 21 L Anion Gap 5 BUN 27 H Creatinine 1.88 H Est GFR ( Amer) 42 L Est GFR (Non-Af Amer) 35 L Glucose 151 H Calcium 8.2 L 07/07/18 07/07/18 07/07/18 11:23 11:23 15:43 Creatine Kinase 53 L CK-MB (CK-2) 1.42 Troponin I < 0.012 < 0.012 Impressions: Chest X-Ray 07/07/18 11:11 IMPRESSION: Obstructive lung disease. No acute findings Assessment & Plan - Diagnosis (1) C. difficile diarrhea Is this a current diagnosis for this admission?: Yes Plan: Continue oral vancomycin. Monitor output. Hopeful discharge within the next 48 hours. Have started Lomotil 3 times daily as needed to help slow some of the diarrhea. (2) Diabetes Qualifiers: Diabetes mellitus type: type 2 Diabetes mellitus complication status: without complication Is this a current diagnosis for this admission?: Yes Plan: Tinea sliding scale insulin. Due to renal failure continuing to hold metformin. (3) Atrial fibrillation Is this a current diagnosis for this admission?: Yes Plan: Currently rate controlled we will continue to monitor. Holding home antiarrhythmics due to acute kidney injury. (4) Hypertension Qualifiers: Hypertension type: essential hypertension Qualified Code(s): I10 - Essential (primary) hypertension Is this a current diagnosis for this admission?: Yes Plan: continue amlodipine and monitoring (5) NEIL (acute kidney injury) Is this a current diagnosis for this admission?: Yes Plan: Still with some improvement in renal function not quite back to baseline yet we will continue hydration and monitoring. No signs of fluid overload. - Time Time Spent with patient: 25-34 minutes Medications reviewed and adjusted accordingly: Yes Anticipated discharge: Home
[2018-07-09] MEDS: DIPHENOXYLATE HCL/ATROP SULF 2.5-0.025 MG TABLET PO PRN (13:24)
[2018-07-09] MEDS: ALPRAZOLAM 0.5 MG TABLET PO SCH (22:31)
[2018-07-10] MEDS: HEPARIN SOD (PORCINE) 5,000 UNIT/ML 1 ML SYRINGE SUBCUT SCH ×3 (05:56→22:59)
[2018-07-10] MEDS: VANCOMYCIN HCL INJ 500 MG VIAL PO SCH ×4 (05:56→23:01)
[2018-07-10] MEDS: LANSOPRAZOLE 30 MG TAB.RAP.DR PO SCH (05:57)
[2018-07-10] MEDS: NORMAL SALINE 1000 ML 1,000 ML IV PRN ×2 (06:23→17:35)
[2018-07-10] MEDS: DIPHENOXYLATE HCL/ATROP SULF 2.5-0.025 MG TABLET PO PRN (06:23)
[2018-07-10 06:45] LABS: ABSOLUTE BASOPHILS # (AUTO) 0.1 10^3/uL (0.0-0.2); ABSOLUTE EOSINOPHILS # (AUTO) 0.2 10^3/uL (0.0-0.6); ABSOLUTE MONOCYTES (AUTO) 0.8 10^3/uL (0.1-1.4); BASOPHILS % (AUTO) 0.7 % (0-2); EOSINOPHILS % (AUTO) 1.9 % (0-6); HEMOGLOBIN 11.4 g/dL (13.5-17.0); LYMPHOCYTES % (AUTO) 10.6 % (13-45); MEAN CORPUSCULAR HEMOGLOBIN 31.5 pg (27.0-33.4); MEAN CORPUSCULAR HGB CONC 34.6 g/dL (32.0-36.0); MEAN CORPUSCULAR VOLUME 91 fl (80-97); MONOCYTES % (AUTO) 8.5 % (3-13); PLATELET COUNT 184 10^3/uL (150-450); RED BLOOD COUNT 3.63 10^6/uL (4.35-5.55); RED CELL DISTRIBUTION WIDTH 14.2 % (11.5-14.0); SEGMENTED NEUTROPHILS % (AUTO) 78.3 % (42-78); TOTAL CELLS COUNTED % (AUTO) 100 %
[2018-07-10 06:57] LABS: ANION GAP 7 (5-19); BLOOD UREA NITROGEN 19 mg/dL (7-20); CALCIUM 8.3 mg/dL (8.4-10.2); CARBON DIOXIDE 18 mmol/L (22-30); CHLORIDE 109 mmol/L (98-107); GLUCOSE 141 mg/dL (75-110); POTASSIUM 4.3 mmol/L (3.6-5.0); SODIUM 133.7 mmol/L (137-145)
[2018-07-10] MEDS: INSULIN REG, HUMAN 100 UNIT/ML 3 ML VIAL (PYX) SUBCUT SCH ×4 (08:22→23:00)
[2018-07-10] MEDS: TAMSULOSIN HCL 0.4 MG CAP.SR.24H PO SCH (09:52)
[2018-07-10] MEDS: AMLODIPINE BESYLATE 5 MG TABLET PO SCH (09:52)
[2018-07-10] MEDS: ASPIRIN 81 MG TABLET, ENT COATED PO SCH (09:52)
--- NOTE | 2018-07-10 20:30 | PDOC PROGRESS REPORT ---
Subjective Progress Note for:: 07/10/18 Subjective:: 78 y.o. M with a H CAD, HTN, NIDDM presented to [facility] with N/V/D. (+) CDIFF. Currently on PO Vancomycin. The patient was seen this morning on rounds. He is resting comfortably in bed on room air. He has just finished eating breakfast. The patient denies abdominal p ain/N/V. He had once bowel movement since last night. CDIFF PCR tested today, still positive. Patient will remain at [facility], no change to treatment plan today. Reason For Visit: C.DIFFICILE DIARRHEA WITH NEIL Physical Exam Vital Signs: Temp Pulse Resp BP Pulse Ox 99.1 F 65 18 124/47 L 99 07/10/18 16:00 07/10/18 16:00 07/10/18 16:00 07/10/18 16:00 07/10/18 16:00 Intake & Output 07/09/18 07/10/18 07/11/18 06:59 06:59 06:59 Intake Total 2845 2834 1979 Output Total 2 Balance 2843 2834 1979 Weight 71.1 kg 73.1 kg 73.1 kg General appearance: PRESENT: no acute distress, obese Eye exam: PRESENT: conjunctiva pink, PERRLA Mouth exam: PRESENT: moist, tongue midline Teeth exam: PRESENT: poor dentation Neck exam: PRESENT: full ROM Respiratory exam: PRESENT: clear to auscultation annita, symmetrical, unlabored Cardiovascular exam: PRESENT: RRR Pulses: PRESENT: normal radial pulses, normal dorsalis pedis pul GI/Abdominal exam: PRESENT: soft, other - obese. rotund. ABSENT: distended, tenderness Rectal exam: PRESENT: deferred Extremities exam: PRESENT: full ROM Musculoskeletal exam: PRESENT: ambulatory, full ROM, normal inspection Neurological exam: PRESENT: alert, awake, oriented to person, oriented to place, oriented to time, oriented to situation Skin exam: PRESENT: dry, intact, normal color Results Laboratory Results: 07/10/18 06:09 07/10/18 06:09 07/10/18 07/10/18 06:09 06:09 WBC 9.0 RBC 3.63 L Hgb 11.4 L Hct 33.0 L MCV 91 MCH 31.5 MCHC 34.6 RDW 14.2 H Plt Count 184 Seg Neutrophils % 78.3 H Lymphocytes % 10.6 L Monocytes % 8.5 Eosinophils % 1.9 Basophils % 0.7 Absolute Neutrophils 7.0 Absolute Lymphocytes 1.0 Absolute Monocytes 0.8 Absolute Eosinophils 0.2 Absolute Basophils 0.1 Sodium 133.7 L Potassium 4.3 Chloride 109 H Carbon Dioxide 18 L Anion Gap 7 BUN 19 Creatinine 1.51 H Est GFR ( Amer) 54 L Est GFR (Non-Af Amer) 45 L Glucose 141 H Calcium 8.3 L 07/07/18 07/07/18 07/07/18 11:23 11:23 15:43 Creatine Kinase 53 L CK-MB (CK-2) 1.42 Troponin I < 0.012 < 0.012 Impressions: Chest X-Ray 07/07/18 11:11 IMPRESSION: Obstructive lung disease. No acute findings Assessment & Plan - Diagnosis (1) C. difficile diarrhea Is this a current diagnosis for this admission?: Yes Plan: Confirmed by CDIFF PCR Stemming from recent PO antibiotic use WBC improved 25-->9 Afebrile. Nontoxic appearing Patient denies abdominal pain, n/v, tolerating PO diet Treat with PO vancomycin (2) Atrial fibrillation Qualifiers: Atrial fibrillation type: chronic Qualified Code(s): I48.2 - Chronic atrial fibrillation Is this a current diagnosis for this admission?: Yes Plan: EKG shows NSR No anticoagulation or rate controlling medications Questionable history - will clarify tomorrow (3) Diabetes Qualifiers: Diabetes mellitus type: type 2 Diabetes mellitus complication status: without complication Is this a current diagnosis for this admission?: Yes Plan: Accucheks ACHS Humalog SSI (4) NEIL (acute kidney injury) Is this a current diagnosis for this admission?: Yes Plan: Improving Cr 2.8-->1.5 Prerenal Secondary to dehydration stemming from diarrhea associated with CDIFF Continue maintenance IVF (5) Hypertension Qualifiers: Hypertension type: essential hypertension Qualified Code(s): I10 - Essential (primary) hypertension Is this a current diagnosis for this admission?: Yes Plan: PMH HTN Continue daily Norvasc - Time Time Spent with patient: 15-24 minutes Medications reviewed and adjusted accordingly: Yes Anticipated discharge: Home Within: within 72 hours - Inpatient Certification Based on my medical assessment, after consideration of the patient's comorbidities, presenting symptoms, or acuity I expect that the services needed warrant INPATIENT care.: Yes I certify that my determination is in accordance with my understanding of Medicare's requirements for reasonable and necessary INPATIENT services [42 CFR 412.3e].: Yes Medical Necessity: Risk of Complication if Not Cared For in Hospital
[2018-07-10] MEDS: ALPRAZOLAM 0.5 MG TABLET PO SCH (22:59)
[2018-07-11] MEDS: VANCOMYCIN HCL INJ 500 MG VIAL PO SCH ×4 (05:50→23:52)
[2018-07-11] MEDS: HEPARIN SOD (PORCINE) 5,000 UNIT/ML 1 ML SYRINGE SUBCUT SCH ×3 (05:50→21:16)
[2018-07-11] MEDS: LANSOPRAZOLE 30 MG TAB.RAP.DR PO SCH (05:50)
[2018-07-11] MEDS: NORMAL SALINE 1000 ML 1,000 ML IV PRN ×2 (07:49→21:20)
[2018-07-11] MEDS: INSULIN REG, HUMAN 100 UNIT/ML 3 ML VIAL (PYX) SUBCUT SCH ×4 (07:53→21:16)
[2018-07-11 09:22] LABS: HEMOGLOBIN 11.5 g/dL (13.5-17.0); MEAN CORPUSCULAR HEMOGLOBIN 31.9 pg (27.0-33.4); MEAN CORPUSCULAR HGB CONC 34.9 g/dL (32.0-36.0); MEAN CORPUSCULAR VOLUME 91 fl (80-97); PLATELET COUNT 199 10^3/uL (150-450); RED BLOOD COUNT 3.61 10^6/uL (4.35-5.55); RED CELL DISTRIBUTION WIDTH 14.2 % (11.5-14.0); WHITE BLOOD COUNT 6.4 10^3/uL (4.0-10.5)
[2018-07-11 09:44] LABS: ALANINE AMINOTRANSFERASE 36 U/L (21-72); ALBUMIN 2.6 g/dL (3.5-5.0); ALKALINE PHOSPHATASE 59 U/L (38-126); ANION GAP 7 (5-19); ASPARTATE AMINO TRANSFERASE 20 U/L (17-59); BILIRUBIN,DIRECT 0.1 mg/dL (0.0-0.4); BILIRUBIN,TOTAL 0.5 mg/dL (0.2-1.3); BLOOD UREA NITROGEN 16 mg/dL (7-20); CARBON DIOXIDE 19 mmol/L (22-30); CHLORIDE 106 mmol/L (98-107); GLUCOSE 202 mg/dL (75-110); POTASSIUM 4.4 mmol/L (3.6-5.0); SODIUM 131.9 mmol/L (137-145); TOTAL PROTEIN 4.9 g/dL (6.3-8.2)
[2018-07-11] MEDS: ASPIRIN 81 MG TABLET, ENT COATED PO SCH (09:49)
[2018-07-11] MEDS: AMLODIPINE BESYLATE 5 MG TABLET PO SCH (09:49)
[2018-07-11] MEDS: TAMSULOSIN HCL 0.4 MG CAP.SR.24H PO SCH (09:49)
--- NOTE | 2018-07-11 09:56 | PDOC PROGRESS REPORT ---
Subjective Progress Note for:: 07/11/18 Subjective:: 78 y.o. M with a H CAD, HTN, NIDDM presented to [facility] with N/V/D. (+) CDIFF. Currently on PO Vancomycin. The patient was seen this morning on rounds. He is resting comfortably in bed on nasal cannula, which he normally wears at night (2.5L). The patient denies abdo isabel pain/N/V. He had one large/loose bowel movement overnight. CDIFF PCR tested yesterday, still positive. Plan for discharge once the patient is no longer having diarrhea or once his CDIFF PCR is negative. PCR can remain (+) positive for 6 wks after the initiation of treatment, so it is more likely that the patient will be sent home upon resolution of symptoms. Reason For Visit: C.DIFFICILE DIARRHEA WITH NEIL Physical Exam Vital Signs: Temp Pulse Resp BP Pulse Ox 97.6 F 66 19 121/54 L 94 07/11/18 08:00 07/11/18 08:00 07/11/18 08:00 07/11/18 08:00 07/11/18 08:00 Intake & Output 07/10/18 07/11/18 07/12/18 06:59 06:59 07:59 Intake Total 2834 3216 Balance 2834 3216 Weight 73.1 kg 93.6 kg General appearance: PRESENT: no acute distress, obese Eye exam: PRESENT: conjunctiva pink, PERRLA Mouth exam: PRESENT: moist, tongue midline Neck exam: PRESENT: full ROM Respiratory exam: PRESENT: clear to auscultation annita, symmetrical, unlabored Cardiovascular exam: PRESENT: RRR Pulses: PRESENT: normal radial pulses, normal dorsalis pedis pul Vascular exam: PRESENT: normal capillary refill GI/Abdominal exam: PRESENT: soft. ABSENT: distended, tenderness Rectal exam: PRESENT: deferred Extremities exam: PRESENT: full ROM. ABSENT: pedal edema Musculoskeletal exam: PRESENT: ambulatory, full ROM, normal inspection Neurological exam: PRESENT: alert, awake, oriented to person, oriented to place, oriented to time, oriented to situation Psychiatric exam: PRESENT: appropriate affect Skin exam: PRESENT: dry, intact, normal color Results Laboratory Results: 07/11/18 08:45 07/11/18 08:45 WBC 6.4 RBC 3.61 L Hgb 11.5 L Hct 33.0 L MCV 91 MCH 31.9 MCHC 34.9 RDW 14.2 H Plt Count 199 07/07/18 07/07/18 07/07/18 11:23 11:23 15:43 Creatine Kinase 53 L CK-MB (CK-2) 1.42 Troponin I < 0.012 < 0.012 Impressions: Chest X-Ray 07/07/18 11:11 IMPRESSION: Obstructive lung disease. No acute findings Status: Imported from PACS Assessment & Plan - Diagnosis (1) C. difficile diarrhea Is this a current diagnosis for this admission?: Yes Plan: Confirmed by CDIFF PCR Stemming from recent PO antibiotic use WBC improved 25-->6.4 Afebrile. Nontoxic appearing Patient denies abdominal pain, n/v, tolerating PO diet Treat with PO vancomycin 125mg PO q6h for 10 days (final dose 07/17/2018 @ 1800) (2) Atrial fibrillation Qualifiers: Atrial fibrillation type: chronic Qualified Code(s): I48.2 - Chronic atrial fibrillation Is this a current diagnosis for this admission?: Yes Plan: Telemetry tracing NSR No anticoagulation or rate controlling medications Patient states he was told he has an irregular HR but does not remember being told he has AFIB (3) Diabetes Qualifiers: Diabetes mellitus type: type 2 Diabetes mellitus complication status: without complication Is this a current diagnosis for this admission?: Yes Plan: Acczachery HERNANDEZ Humalog SSI (4) NEIL (acute kidney injury) Is this a current diagnosis for this admission?: Yes Plan: Improving Cr 2.8-->1.5 Prerenal Secondary to dehydration stemming from diarrhea associated with CDIFF Continue maintenance IVF (5) Hypertension Qualifiers: Hypertension type: essential hypertension Qualified Code(s): I10 - Essential (primary) hypertension Is this a current diagnosis for this admission?: Yes Plan: PMH HTN Continue daily Norvasc - Time Time Spent with patient: 15-24 minutes Medications reviewed and adjusted accordingly: Yes Anticipated discharge: Home Within: within 24 hours - Inpatient Certification Based on my medical assessment, after consideration of the patient's comorbidities, presenting symptoms, or acuity I expect that the services needed warrant INPATIENT care.: Yes I certify that my determination is in accordance with my understanding of Medicare's requirements for reasonable and necessary INPATIENT services [42 CFR 412.3e].: Yes Medical Necessity: Risk of Complication if Not Cared For in Hospital
[2018-07-11] MEDS: ALPRAZOLAM 0.5 MG TABLET PO SCH (21:17)
[2018-07-12] MEDS: VANCOMYCIN HCL INJ 500 MG VIAL PO SCH ×2 (05:53→11:40)
[2018-07-12] MEDS: LANSOPRAZOLE 30 MG TAB.RAP.DR PO SCH (05:54)
[2018-07-12] MEDS: HEPARIN SOD (PORCINE) 5,000 UNIT/ML 1 ML SYRINGE SUBCUT SCH (05:54)
[2018-07-12 08:52] VITALS: BP 146/55
[2018-07-12] MEDS: INSULIN REG, HUMAN 100 UNIT/ML 3 ML VIAL (PYX) SUBCUT SCH ×2 (09:13→12:34)
[2018-07-12] MEDS: ASPIRIN 81 MG TABLET, ENT COATED PO SCH (09:32)
[2018-07-12] MEDS: AMLODIPINE BESYLATE 5 MG TABLET PO SCH (09:32)
[2018-07-12] MEDS: TAMSULOSIN HCL 0.4 MG CAP.SR.24H PO SCH (09:32)
== END 2018-07-12 12:00 | disposition home or self-care (01) | DRG 372 ==
LOC: ER 10:29 → EH 16:33 → 4S 18:23
PROVIDERS: ADMIT Internal Medicine; ATTEND Internal Medicine
DX: A04.72 Enterocolitis due to Clostridium difficile, not specified as recurrent (principal); N17.9 Acute kidney failure, unspecified; E78.5 Hyperlipidemia, unspecified; J44.9 Chronic obstructive pulmonary disease, unspecified; E11.9 Type 2 diabetes mellitus without complications; I48.2 Chronic atrial fibrillation; I11.0 Hypertensive heart disease with heart failure; I50.9 Heart failure, unspecified; F17.200 Nicotine dependence, unspecified, uncomplicated; K21.9 Gastro-esophageal reflux disease without esophagitis; M13.851 Other specified arthritis, right hip; M13.88 Other specified arthritis, other site; Z90.49 Acquired absence of other specified parts of digestive tract; Z83.3 Family history of diabetes mellitus; Z82.49 Family history of ischemic heart disease and other diseases of the circulatory system; Z79.84 Long term (current) use of oral hypoglycemic drugs
CPT/HCPCS: 36415; 71045; 80048; 80053; 82550; 82553; 82962; 83605; 83690; 83735; 84484; 85025; 85027; 87493; 93005; 93010; 96361; 96374; 99285; J1644; J1815; J2405; J3370; J3490; J7030; S0119

== ENCOUNTER 2018-07-25 11:56 | Inpatient (IN) | payer MEDICARE, MEDICAID ==
--- NOTE | 2018-07-25 12:28 | ER Document Report ---
ED Medical Screen (RME) - General Chief Complaint: Diarrhea Stated Complaint: DIARRHEA Time Seen by Provider: 07/25/18 12:06 Mode of Arrival: Ambulatory Information source: Patient TRAVEL OUTSIDE OF THE [place] IN LAST 30 DAYS: No - HPI Patient complains to provider of: diarrhea Onset: Yesterday - pt . with h/o C. Diff with diarrhea starting yesterday - Related Data Allergies/Adverse Reactions: No Known Allergies Allergy (Verified 07/25/18 11:57) Past Medical History - Social History Chew tobacco use (# tins/day): No Frequency of alcohol use: None Drug Abuse: None - Past Medical History Cardiac Medical History: Reports: Hx Atrial Fibrillation, Hx Hypercholesterolemia, Hx Hypertension Denies: Hx Coronary Artery Disease, Hx Heart Attack Pulmonary Medical History: Reports: Hx COPD Denies: Hx Pneumonia - HX Neurological Medical History: Denies: Hx Cerebrovascular Accident, Hx Seizures Endocrine Medical History: Reports: Hx Diabetes Mellitus Type 2 Renal/ Medical History: Denies: Hx Peritoneal Dialysis GI Medical History: Reports: Hx Gastroesophageal Reflux Disease Musculoskeltal Medical History: Reports Hx Arthritis - HIPS, BACK Psychiatric Medical History: Denies: Hx Depression Past Surgical History: Reports: Hx Cardiac Catheterization - stent, Hx Cholecystectomy, Hx Orthopedic Surgery, Hx Tonsillectomy - Immunizations Hx Diphtheria, Pertussis, Tetanus Vaccination: Yes Influenza Administration Date for 02/2017 - 07/2017 Season: 02/02/17 Physical Exam - Vital signs Vitals: Temp Pulse Resp BP Pulse Ox 98.1 F 70 18 130/57 H 92 07/25/18 12:04 07/25/18 12:04 07/25/18 12:04 07/25/18 12:04 07/25/18 12:04 Course - Vital Signs Vital signs: Temp Pulse Resp BP Pulse Ox 98.1 F 70 18 130/57 H 92 07/25/18 12:04 07/25/18 12:04 07/25/18 12:04 07/25/18 12:04 07/25/18 12:04
[2018-07-25] MEDS ORDERED: ONDANSETRON 4 MG TAB.RAPDIS PO ONE (13:21)
[2018-07-25] MEDS ORDERED: NORMAL SALINE 500 ML IV ONE (13:24)
[2018-07-25 13:25] LABS: APPEARANCE,URINE CLEAR; BILIRUBIN,URINE NEGATIVE (NEGATIVE); COLOR,URINE YELLOW; GLUCOSE, URINE >=500 mg/dL (NEGATIVE); KETONES,URINE NEGATIVE (NEGATIVE); LEUKOCYTE ESTERASE,URINE NEGATIVE (NEGATIVE); NITRITE,URINE NEGATIVE (NEGATIVE); PROTEIN,URINE 30 mg/dL (NEGATIVE); URINE SPECIFIC GRAVITY 1.014; UROBILINOGEN,URINE NEGATIVE mg/dL (<2.0)
--- NOTE | 2018-07-25 13:25 | ER Document Report ---
ED General - General Chief Complaint: Diarrhea Stated Complaint: DIARRHEA Time Seen by Provider: 07/25/18 12:06 Mode of Arrival: Ambulatory Information source: Patient, Relative, H Records Notes: 78-year-old male with hyperlipidemia, hypertension, COPD, type 2 diabetes, recent diagnosis of C. difficile recently discharged from [facility] on July 12, 2018 presents with concern for recurring diarrhea that started in the middle the night. Patient describes it as explosive, burning and copious. Patient has had greater than 5 episodes of diarrhea since 1 AM. He denies any associated abdominal pain, fever, chills. He did have nausea and one episode vomiting. Patient was sent home with 6 days of antibiotics which he did complete. He does report that he felt better and had formed stools until yesterday. TRAVEL OUTSIDE OF THE [place] IN LAST 30 DAYS: No - HPI Onset: This morning Onset/Duration: Sudden Quality of pain: No pain Severity: None Pain Level: Denies Associated symptoms: Diarrhea, Nausea, Vomiting, Shortness of breath - Chronic shortness of breath secondary to COPD. denies: Chest pain, Chills, Fever Exacerbated by: Denies Relieved by: Denies Similar symptoms previously: Yes Recently seen / treated by doctor: Yes - Related Data Allergies/Adverse Reactions: No Known Allergies Allergy (Verified 07/25/18 11:57) Past Medical History - General Information source: Patient - Social History Smoking Status: Former Smoker Chew tobacco use (# tins/day): No Frequency of alcohol use: None Drug Abuse: None Lives with: Family Family History: Reviewed & Not Pertinent Patient has suicidal ideation: No Patient has homicidal ideation: No - Past Medical History Cardiac Medical History: Reports: Hx Atrial Fibrillation, Hx Hypercholesterolemia, Hx Hypertension Denies: Hx Coronary Artery Disease, Hx Heart Attack Pulmonary Medical History: Reports: Hx COPD Denies: Hx Pneumonia - HX Neurological Medical History: Denies: Hx Cerebrovascular Accident, Hx Seizures Endocrine Medical History: Reports: Hx Diabetes Mellitus Type 2 Renal/ Medical History: Denies: Hx Peritoneal Dialysis GI Medical History: Reports: Hx Gastroesophageal Reflux Disease Musculoskeletal Medical History: Reports Hx Arthritis - HIPS, BACK Psychiatric Medical History: Denies: Hx Depression Past Surgical History: Reports: Hx Cardiac Catheterization - stent, Hx Cholecystectomy, Hx Orthopedic Surgery, Hx Tonsillectomy - Immunizations Hx Diphtheria, Pertussis, Tetanus Vaccination: Yes Review of Systems - Review of Systems Notes: REVIEW OF SYSTEMS: CONSTITUTIONAL : Denies fever, chills, or sweats. Denies recent illness. Denies weight loss, EENT: Denies visual changes, eye pain. Denies sore throat, oral lesions, diffi culty swallowing. CARDIOVASCULAR: Denies chest pain. Denies palpitations. Denies lower extremity edema. RESPIRATORY: Denies cough. Denies shortness of breath, wheezing. GASTROINTESTINAL: Denies abdominal pain or distention. Denies blood in vomitus, stools, or per rectum. Denies black, tarry stools. Denies constipation. GENITOURINARY: Denies difficulty urinating, painful urination, frequency, blood in urine, testicular pain or penile discharge. MUSCULOSKELETAL: Denies back or neck pain or stiffness. Denies joint pain or swelling. SKIN: Denies rash, lesions or sores. HEMATOLOGIC : Denies easy bruising or bleeding. LYMPHATIC: Denies swollen glands. NEUROLOGICAL: Denies confusion or altered mental status. Denies loss of consciousness. Denies dizziness or lightheadedness. Denies headache. Denies weakness or paralysis. Denies problems difficulty with ambulation, slurred speech. Denies sensory loss, numbness, or tingling. Denies seizures. PSYCHIATRIC: Denies anxiety or stress. Denies depression, suicidal ideation, or Physical Exam - Vital signs Vitals: Temp Pulse Resp BP Pulse Ox 98.1 F 70 18 130/57 H 92 07/25/18 12:04 07/25/18 12:04 07/25/18 12:04 07/25/18 12:04 07/25/18 12:04 - Notes Notes: PHYSICAL EXAMINATION: GENERAL: Well-appearing, well-nourished and in no acute distress. HEAD: Atraumatic, normocephalic. EYES: Pupils equal round and reactive to light, extraocular movements intact, sclera anicteric, conjunctiva are normal. ENT: Nares patent, oropharynx clear without exudates. Moist mucous membranes. NECK: Normal range of motion, supple without lymphadenopathy LUNGS: Breath sounds clear to auscultation bilaterally and equal. No wheezes rales or rhonchi. HEART: Regular rate and rhythm without murmurs ABDOMEN: Soft, nontender, nondistended abdomen. No guarding, no rebound. No masses appreciated. Musculoskeletal: Normal range of motion, no pitting or edema. No cyanosis. NEUROLOGICAL: Cranial nerves grossly intact. Normal speech, normal gait. Normal sensory, motor exams PSYCH: Normal mood, normal affect. SKIN: Warm, Dry, normal turgor, no rashes or lesions noted. Course - Re-evaluation Re-evalutation: 07/25/18 20:55 Microbiology 07/25/18 12:52 - Preliminary Stool - Stool Laboratory 07/25/18 07/25/18 07/25/18 12:52 12:52 12:52 WBC RBC Hgb Hct MCV MCH MCHC RDW Plt Count Total Counted Seg Neutrophils % Seg Neuts % (Manual) Lymphocytes % Lymphocytes % (Manual) Monocytes % Monocytes % (Manual) Eosinophils % Eosinophils % (Manual) Basophils % Basophils % (Manual) Absolute Neutrophils Abs Neuts (Manual) Absolute Lymphocytes Abs Lymphs (Manual) Absolute Monocytes Abs Monocytes (Manual) Absolute Eosinophils Absolute Eos (Manual) Absolute Basophils Abs Basophils (Manual) Platelet Comment RBC Morph Comment Sodium Potassium Chloride Carbon Dioxide Anion Gap BUN Creatinine Est GFR ( Amer) Est GFR (Non-Af Amer) Glucose Calcium Total Bilirubin Direct Bilirubin Neonat Total Bilirubin Neonat Direct Bilirubin Neonat Indirect Bili AST ALT Alkaline Phosphatase Total Protein Albumin Urine Color YELLOW Urine Appearance CLEAR Urine pH 6.0 Ur Specific [place] 1.014 Urine Protein 30 H Urine Glucose (UA) >=500 H Urine Ketones NEGATIVE Urine Blood NEGATIVE Urine Nitrite NEGATIVE Urine Bilirubin NEGATIVE Urine Urobilinogen NEGATIVE Ur Leukocyte Esterase NEGATIVE Urine WBC (Auto) 0 Urine RBC (Auto) 0 U Hyaline Cast (Auto) 1 Squamous Epi Cells Auto <1 Urine Mucus (Auto) RARE Urine Ascorbic Acid NEGATIVE Stool Occult Blood NEGATIVE Stool for White Cells MANY H C. difficile Tox (PCR) 07/25/18 07/25/18 07/25/18 12:52 14:28 14:28 WBC 15.9 H RBC 4.14 L Hgb 13.1 L Hct 38.5 MCV 93 MCH 31.7 MCHC 34.1 RDW 14.8 H Plt Count 197 Total Counted 100 Seg Neutrophils % Not Reportable Seg Neuts % (Manual) 87 H Lymphocytes % Not Reportable Lymphocytes % (Manual) 7 L Monocytes % Not Reportable Monocytes % (Manual) 6 Eosinophils % Not Reportable Eosinophils % (Manual) 0 Basophils % Not Reportable Basophils % (Manual) 0 Absolute Neutrophils Not Reportable Abs Neuts (Manual) 13.8 H Absolute Lymphocytes Not Reportable Abs Lymphs (Manual) 1.1 Absolute Monocytes Not Reportable Abs Monocytes (Manual) 1.0 Absolute Eosinophils Not Reportable Absolute Eos (Manual) 0.0 Absolute Basophils Not Reportable Abs Basophils (Manual) 0.0 Platelet Comment ADEQUATE RBC Morph Comment NORMO-CYTIC/CHROMIC Sodium 136.2 L Potassium 5.0 Chloride 102 Carbon Dioxide 21 L Anion Gap 13 BUN 32 H Creatinine 1.79 H Est GFR ( Amer) 45 L Est GFR (Non-Af Amer) 37 L Glucose 156 H Calcium 9.6 Total Bilirubin 1.5 H Direct Bilirubin 0.3 Neonat Total Bilirubin Not Reportable Neonat Direct Bilirubin Not Reportable Neonat Indirect Bili Not Reportable AST 20 ALT 26 Alkaline Phosphatase 70 Total Protein 6.8 Albumin 3.9 Urine Color Urine Appearance Urine pH Ur Specific [place] Urine Protein Urine Glucose (UA) Urine Ketones Urine Blood Urine Nitrite Urine Bilirubin Urine Urobilinogen Ur Leukocyte Esterase Urine WBC (Auto) Urine RBC (Auto) U Hyaline Cast (Auto) Squamous Epi Cells Auto Urine Mucus (Auto) Urine Ascorbic Acid Stool Occult Blood Stool for White Cells C. difficile Tox (PCR) POSITIVE Temp Pulse Resp BP Pulse Ox 99.4 F 77 16 123/37 L 84 L 07/25/18 19:47 07/25/18 19:47 07/25/18 19:47 07/25/18 19:47 07/25/18 19:47 78-year-old male returns with concern for a recurrence of his C. difficile. Patient was discharged from [facility] on July 12, 2018 was having solid stools when after an admission for C. difficile. Patient states that he was discharged home in better condition with 1 week of p.o. vancomycin completed. Patient states that he did develop formed stools but last night began having voluminous diarrhea and is concerned for recurrence of his previous infection. Patient appears mildly dehydrated but nontoxic. Abdomen is nontender. Previous medical records and nursing notes were reviewed. Vital signs reviewed upon arrival and patient is afebrile, normotensive and not hypoxic. Repeat labs show a leukocytosis of 16 on comparison to his discharge labs this is increased from 6. CMP shows mild NEIL which is not far from his baseline. Stool is positive for C. difficile. Patient had nausea without vomiting but was given an antiemetic and reports improvement. Patient has been admitted by the hospitalist Dr Brito to a medical floor. The patient and his family member who is at the bedside are agreeable with admission. 07/25/18 20:58 07/25/18 20:59 - Vital Signs Vital signs: Temp Pulse Resp BP Pulse Ox 99.4 F 77 16 123/37 L 84 L 07/25/18 19:47 07/25/18 19:47 07/25/18 19:47 07/25/18 19:47 07/25/18 19:47 - Laboratory Result Diagrams: 07/25/18 14:28 07/25/18 14:28 Laboratory results interpreted by me: 07/25/18 07/25/18 07/25/18 12:52 12:52 14:28 WBC 15.9 H RBC 4.14 L Hgb 13.1 L RDW 14.8 H Seg Neuts % (Manual) 87 H Lymphocytes % (Manual) 7 L Abs Neuts (Manual) 13.8 H Sodium Carbon Dioxide BUN Creatinine Est GFR ( Amer) Est GFR (Non-Af Amer) Glucose Total Bilirubin Urine Protein 30 H Urine Glucose (UA) >=500 H Stool for White Cells MANY H 07/25/18 14:28 WBC RBC Hgb RDW Seg Neuts % (Manual) Lymphocytes % (Manual) Abs Neuts (Manual) Sodium 136.2 L Carbon Dioxide 21 L BUN 32 H Creatinine 1.79 H Est GFR ( Amer) 45 L Est GFR (Non-Af Amer) 37 L Glucose 156 H Total Bilirubin 1.5 H Urine Protein Urine Glucose (UA) Stool for White Cells Discharge - Discharge Clinical Impression: C. difficile diarrhea, NEIL (acute kidney injury) Vomiting Qualifiers: Vomiting type: unspecified Vomiting Intractability: non-intractable Nausea presence: with nausea Qualified Code(s): R11.2 - Nausea with vomiting, unspecified Condition: Good Disposition: ADMITTED INPATIENT Admitting Provider: Hospitalist Unit Admitted: Medical Floor
[2018-07-25 14:48] LABS: HEMATOCRIT 38.5 % (37.9-51.0); HEMOGLOBIN 13.1 g/dL (13.5-17.0); MEAN CORPUSCULAR HEMOGLOBIN 31.7 pg (27.0-33.4); MEAN CORPUSCULAR HGB CONC 34.1 g/dL (32.0-36.0); MEAN CORPUSCULAR VOLUME 93 fl (80-97); PLATELET COUNT 197 10^3/uL (150-450); RED BLOOD COUNT 4.14 10^6/uL (4.35-5.55); RED CELL DISTRIBUTION WIDTH 14.8 % (11.5-14.0); WHITE BLOOD COUNT 15.9 10^3/uL (4.0-10.5)
[2018-07-25 14:56] LABS: ALANINE AMINOTRANSFERASE 26 U/L (21-72); ALBUMIN 3.9 g/dL (3.5-5.0); ALKALINE PHOSPHATASE 70 U/L (38-126); ANION GAP 13 (5-19); ASPARTATE AMINO TRANSFERASE 20 U/L (17-59); BILIRUBIN,DIRECT 0.3 mg/dL (0.0-0.4); BILIRUBIN,TOTAL 1.5 mg/dL (0.2-1.3); BLOOD UREA NITROGEN 32 mg/dL (7-20); CALCIUM 9.6 mg/dL (8.4-10.2); CARBON DIOXIDE 21 mmol/L (22-30); CHLORIDE 102 mmol/L (98-107); GLUCOSE 156 mg/dL (75-110); SODIUM 136.2 mmol/L (137-145); TOTAL PROTEIN 6.8 g/dL (6.3-8.2)
[2018-07-25 15:15] LABS: ABSOLUTE LYMPHOCYTES# (MANUAL) 1.1 10^3/uL (0.5-4.7); ABSOLUTE NEUTROPHILS# (MANUAL) 13.8 10^3/uL (1.7-8.2); BASOPHILS % (MANUAL) 0 % (0-2); EOSINOPHILS % (MANUAL) 0 % (0-6); LYMPHOCYTES % (MANUAL) 7 % (13-45); MONOCYTES % (MANUAL) 6 % (3-13); SEGMENTED NEUTROPHILS % (MAN) 87 % (42-78); TOTAL CELLS COUNTED 100
[2018-07-25 15:17] LABS: PLATELET COMMENT ADEQUATE; RBC MORPHOLOGY COMMENT NORMO-CYTIC/CHROMIC
[2018-07-25] MEDS ORDERED: NORMAL SALINE 1000 ML 1,000 ML IV ONE (17:23)
[2018-07-25] MEDS ORDERED: VANCOMYCIN HCL INJ 500 MG VIAL ONE ×2 (19:50→21:11)
[2018-07-25] MEDS ORDERED: ALBUTEROL SULFATE HFA (90 MCG/PUFF) 8 GM MDI (1 MDI/ER DISP) IH PRN (19:52)
[2018-07-25] MEDS ORDERED: NITROGLYCERIN 0.4 MG/TAB 25 TAB/BOTTLE SL PRN (19:52)
[2018-07-25] MEDS: VANCOMYCIN HCL INJ 500 MG VIAL PO SCH (19:53)
--- NOTE | 2018-07-25 19:59 | PDOC H&P ---
History of Present Illness Admission Date/PCP: 07/25/18 15:17 Patient complains of: Diarrhea, nausea and vomiting History of Present Illness: SHRUTHI EVANS is a 78 year old male history of CAD, reported CHF, diabetes, recently admitted to this hospital for C diff and discharged 07/12/18 on p.o. Vanco to complete a total of 10 days treatment. Patient states he did well and 4 days ago he began to have formed stools. Last night however, he again developed explosive diarrhea. He has had about 8 bowel movements in the past 12 hours, large volume, watery and malodorous. Blood cell count abdominal cramps. He came to the ED where he had episode of nausea and vomiting. Evaluation in the ED significant for PCR stool positive for C. difficile. Creatinine with elevated at 1.79 (baseline 1.29 by 07/11/18). Patient given 500 ml bolus of IV fluid and referred for admission. Past Medical History Cardiac Medical History: Reports: Atrial Fibrillation, Hyperlipidema, Hypertension Denies: Coronary Artery Disease, Myocardial Infarction Pulmonary Medical History: Reports: Chronic Obstructive Pulmonary Disease (COPD) Denies: Pneumonia - HX Neurological Medical History: Denies: Seizures Endocrine Medical History: Reports: Diabetes Mellitus Type 2 GI Medical History: Reports: Gastroesophageal Reflux Disease Musculoskeltal Medical History: Reports: Arthritis - HIPS, BACK Psychiatric Medical History: Denies: Depression Hematology: Denies: Anemia Past Surgical History Past Surgical History: Reports: Cardiac Catheterization - stent, Cholecystectomy, Orthopedic Surgery, Tonsillectomy Social History Lives with: Family Smoking Status: Former Smoker Frequency of Alcohol Use: None Hx Recreational Drug Use: No Drugs: None Hx Prescription Drug Abuse: No Family History Family History: CAD Parental Family History Reviewed: Yes Children Family History Reviewed: Yes Sibling(s) Family History Reviewed.: Yes Medication/Allergy Home Medications: Albuterol Sulfate [Proair HFA] 2 puff IH Q4 PRN 11/19/17 Alprazolam 1 mg PO BID 11/19/17 Amlodipine Besylate 5 mg PO DAILY 11/19/17 Aspirin [Aspirin EC] 81 mg PO DAILY 11/19/17 Atorvastatin Calcium 40 mg PO QHS 11/19/17 Diclofenac Sodium 75 mg PO DAILYP PRN 11/19/17 Finasteride 5 mg PO DAILY 11/19/17 Lisinopril 0.5 tab PO DAILY 11/19/17 Nitroglycerin 0.4 mg SL ASDIR PRN 11/19/17 Pantoprazole Sodium 40 mg PO DAILY 11/19/17 Pioglitazone HCl 15 mg PO DAILY 11/19/17 Ranolazine [Ranexa] 500 mg PO BID 11/19/17 Tamsulosin HCl 0.4 mg PO DAILY 11/19/17 Umeclidinium Brm/Vilanterol Tr [Anoro Ellipta 62.5-25 Mcg INH] 1 each IH DAILY 11/19/17 Vancomycin HCl 125 mg PO Q6 6 Days #24 capsule 07/12/18 Allergies/Adverse Reactions: No Known Allergies Allergy (Verified 07/25/18 11:57) Review of Systems Review of Systems: CONSTITUTIONAL : Fever, chills -- No; unexpalined fatigue -- No EENT: Denies eye, ear, throat, or mouth pain or symptoms. Denies nasal or sinus congestion or discharge. Denies throat, tongue, or mouth swelling or difficulty swallowing. CARDIOVASCULAR: Denies chest pain. No racing heart RESPIRATORY: Denies cough, no shortness of breath, difficulty breathing. GASTROINTESTINAL: As in HPI. No rectal bleeding. GENITOURINARY: Urinary symptoms -- no. MUSCULOSKELETAL: No acute weakness SKIN: Denies rash, lesions or sores. HEMATOLOGIC : Denies easy bruising or bleeding. LYMPHATIC: Denies swollen, enlarged glands. NEUROLOGICAL: New weakness, headaches, slured speach - No PSYCHIATRIC: Changes anxiety or stress, depression, suicidal ideation, or homicidal ideation -- No ALL OTHER SYSTEMS REVIEWED AND NEGATIVE. Physical Exam Vital Signs: Temp Pulse Resp BP Pulse Ox 98.1 F 70 18 130/57 H 92 07/25/18 12:04 07/25/18 12:04 07/25/18 12:04 07/25/18 12:04 07/25/18 12:04 Intake & Output 07/24/18 07/25/18 07/26/18 06:59 06:59 06:59 Intake Total 500 Balance 500 Weight 86.9 kg GENERAL: Well-developed elderly male, no acute distress HEENT: Normocephalic/atraumatic, oral mucosa mildly dry NECK supple, no JVD CARDIOVASCULAR: RRR, normal S1-S2, no appreciable murmur LUNGS: CTA bilaterally ABDOMEN: Soft, NT, NL bowel sounds EXTREMITIES: No edema, clubbing, cyanosis NEUROLOGICAL: Alert, oriented x 3, strength 5/5 throughout Results Laboratory Results: 07/25/18 14:28 07/25/18 14:28 07/25/18 07/25/18 07/25/18 12:52 12:52 12:52 WBC RBC Hgb Hct MCV MCH MCHC RDW Plt Count Seg Neutrophils % Lymphocytes % Monocytes % Eosinophils % Basophils % Absolute Neutrophils Absolute Lymphocytes Absolute Monocytes Absolute Eosinophils Absolute Basophils Sodium Potassium Chloride Carbon Dioxide Anion Gap BUN Creatinine Est GFR ( Amer) Est GFR (Non-Af Amer) Glucose Calcium Total Bilirubin AST ALT Alkaline Phosphatase Total Protein Albumin Urine Color YELLOW Urine Appearance CLEAR Urine pH 6.0 Ur Specific [place] 1.014 Urine Protein 30 H Urine Glucose (UA) >=500 H Urine Ketones NEGATIVE Urine Blood NEGATIVE Urine Nitrite NEGATIVE Ur Leukocyte Esterase NEGATIVE Urine WBC (Auto) 0 Urine RBC (Auto) 0 Stool Occult Blood NEGATIVE Stool for White Cells MANY H 07/25/18 07/25/18 14:28 14:28 WBC 15.9 H RBC 4.14 L Hgb 13.1 L Hct 38.5 MCV 93 MCH 31.7 MCHC 34.1 RDW 14.8 H Plt Count 197 Seg Neutrophils % Not Reportable Lymphocytes % Not Reportable Monocytes % Not Reportable Eosinophils % Not Reportable Basophils % Not Reportable Absolute Neutrophils Not Reportable Absolute Lymphocytes Not Reportable Absolute Monocytes Not Reportable Absolute Eosinophils Not Reportable Absolute Basophils Not Reportable Sodium 136.2 L Potassium 5.0 Chloride 102 Carbon Dioxide 21 L Anion Gap 13 BUN 32 H Creatinine 1.79 H Est GFR ( Amer) 45 L Est GFR (Non-Af Amer) 37 L Glucose 156 H Calcium 9.6 Total Bilirubin 1.5 H AST 20 ALT 26 Alkaline Phosphatase 70 Total Protein 6.8 Albumin 3.9 Urine Color Urine Appearance Urine pH Ur Specific [place] Urine Protein Urine Glucose (UA) Urine Ketones Urine Blood Urine Nitrite Ur Leukocyte Esterase Urine WBC (Auto) Urine RBC (Auto) Stool Occult Blood Stool for White Cells Assessment and Plan - Diagnosis (1) C. difficile diarrhea Is this a current diagnosis for this admission?: Yes (2) Acute kidney injury superimposed on CKD Is this a current diagnosis for this admission?: Yes (3) CAD (coronary artery disease) Is this a current diagnosis for this admission?: Yes (4) Diabetes Qualifiers: Diabetes mellitus type: type 2 Diabetes mellitus complication status: without complication Is this a current diagnosis for this admission?: Yes (5) Hypertension Qualifiers: Hypertension type: essential hypertension Qualified Code(s): I10 - Essent ial (primary) hypertension Is this a current diagnosis for this admission?: Yes - Plan Summary Plan Summary: This may very well be recurrent C. difficile infection although PCR test for c diff is very sensitive. In any case patient still with diarrhea. He may need longer treatment with Vanco. Will restart on Vanco 120 mg every 6 hours p.o. I will needs patient to 24 hours observation, as I believe he will turn around in the next 24-48 hours. For NEIL, patient concerned he has history of CHF and does not want too much IV fluid. I do not see an echo in the system. He has received 500 mL of fluid bolus in the ED. We will continue with gentle IV fluid at 30 mL an hour for now and recheck Chem-7 in the morning. Consider discontinuing fluid in the renal function baseline and patient tolerating p.o. patient. Resume patient's chronic home medications otherwise. Will hold nephrotoxic medications, including diclofenac. Will also hold lisinopril for now. Also I am concerned that patient is on Protonix. This can increase incidence of C. difficile. Will hold Protonix for now.
[2018-07-25] MEDS: ATORVASTATIN CALCIUM 40 MG TABLET PO SCH (21:37)
[2018-07-25] MEDS: ALPRAZOLAM 0.5 MG TABLET PO SCH (22:27)
[2018-07-26] MEDS: VANCOMYCIN HCL INJ 500 MG VIAL PO SCH ×5 (02:58→22:02)
[2018-07-26 07:01] LABS: HEMATOCRIT 34.8 % (37.9-51.0); HEMOGLOBIN 11.8 g/dL (13.5-17.0); MEAN CORPUSCULAR HEMOGLOBIN 31.1 pg (27.0-33.4); MEAN CORPUSCULAR HGB CONC 33.9 g/dL (32.0-36.0); MEAN CORPUSCULAR VOLUME 92 fl (80-97); PLATELET COUNT 206 10^3/uL (150-450); RED BLOOD COUNT 3.79 10^6/uL (4.35-5.55); WHITE BLOOD COUNT 14.9 10^3/uL (4.0-10.5)
[2018-07-26 07:31] LABS: ANION GAP 11 (5-19); BLOOD UREA NITROGEN 40 mg/dL (7-20); CALCIUM 8.5 mg/dL (8.4-10.2); CARBON DIOXIDE 19 mmol/L (22-30); CHLORIDE 105 mmol/L (98-107); GLUCOSE 152 mg/dL (75-110); POTASSIUM 4.6 mmol/L (3.6-5.0); SODIUM 134.8 mmol/L (137-145)
[2018-07-26] MEDS ORDERED: ALPRAZOLAM 0.5 MG TABLET PO SCH (10:00)
[2018-07-26] MEDS ORDERED: (PENDING PHARMACY ID) (Umeclidinium Brm/Vilanterol Tr [Anoro Ellipta 62.5-25 Mcg Inh] 1 EA IH SCH (10:00)
[2018-07-26] MEDS ORDERED: ALBUTEROL SULFATE HFA (90 MCG/PUFF) 200 PUFF/8.5 GM MDI IH PRN (10:00)
[2018-07-26] MEDS: ASPIRIN 81 MG TABLET, ENT COATED PO SCH (10:13)
[2018-07-26] MEDS: TAMSULOSIN HCL 0.4 MG CAP.SR.24H PO SCH (10:13)
[2018-07-26] MEDS: RANOLAZINE 500 MG TAB.SR.12H PO SCH ×2 (10:13→17:46)
[2018-07-26] MEDS: ALPRAZOLAM 0.5 MG TABLET PO SCH ×2 (10:13→21:54)
[2018-07-26] MEDS: FINASTERIDE 5 MG TABLET PO SCH (10:13)
[2018-07-26] MEDS: ENOXAPARIN SODIUM INJ 30 MG/0.3 ML DISP.SYRIN SUBCUT SCH (10:14)
[2018-07-26] MEDS: AMLODIPINE BESYLATE 5 MG TABLET PO SCH (10:14)
[2018-07-26] MEDS: PIOGLITAZONE HCL 15 MG TABLET PO SCH (11:41)
--- NOTE | 2018-07-26 13:00 | PDOC PROGRESS REPORT ---
Subjective Progress Note for:: 07/26/18 Subjective:: Still had significant diarrhea overnight. Not eating or drinking very much. Denies chest pain or shortness of breath, no palpitations. No fever or chills. No significant abdominal pain. No nausea or vomiting. Reason For Visit: NEIL,DIARRHEA,C DIFF Physical Exam Vital Signs: Temp Pulse Resp BP Pulse Ox 98.0 F 87 16 102/44 L 91 L 07/26/18 08:00 07/26/18 08:00 07/26/18 08:00 07/26/18 08:00 07/26/18 08:00 Intake & Output 07/25/18 07/26/18 07/27/18 06:59 06:59 06:59 Intake Total 1580 Balance 1580 Weight 86.9 kg GEN: NAD, well-developed, well-nourished HEENT: Oral mucosa mildly dry CV: RRR, NL S1S2 LUNGS: CTA bilaterally ABDOMEN Soft, NT, +BS EXTERMITIES: No e/c/c NEURO: Alert, oriented x3, nonfocal Results Laboratory Results: 07/26/18 06:28 07/26/18 06:28 07/25/18 07/25/18 07/25/18 12:52 12:52 12:52 WBC RBC Hgb Hct MCV MCH MCHC RDW Plt Count Seg Neutrophils % Lymphocytes % Monocytes % Eosinophils % Basophils % Absolute Neutrophils Absolute Lymphocytes Absolute Monocytes Absolute Eosinophils Absolute Basophils Sodium Potassium Chloride Carbon Dioxide Anion Gap BUN Creatinine Est GFR ( Amer) Est GFR (Non-Af Amer) Glucose Calcium Total Bilirubin AST ALT Alkaline Phosphatase Total Protein Albumin TSH Urine Color YELLOW Urine Appearance CLEAR Urine pH 6.0 Ur Specific [place] 1.014 Urine Protein 30 H Urine Glucose (UA) >=500 H Urine Ketones NEGATIVE Urine Blood NEGATIVE Urine Nitrite NEGATIVE Ur Leukocyte Esterase NEGATIVE Urine WBC (Auto) 0 Urine RBC (Auto) 0 Stool Occult Blood NEGATIVE Stool for White Cells MANY H 07/25/18 07/25/18 07/26/18 14:28 14:28 06:28 WBC 15.9 H 14.9 H RBC 4.14 L 3.79 L Hgb 13.1 L 11.8 L Hct 38.5 34.8 L MCV 93 92 MCH 31.7 31.1 MCHC 34.1 33.9 RDW 14.8 H 15.0 H Plt Count 197 206 Seg Neutrophils % Not Reportable Lymphocytes % Not Reportable Monocytes % Not Reportable Eosinophils % Not Reportable Basophils % Not Reportable Absolute Neutrophils Not Reportable Absolute Lymphocytes Not Reportable Absolute Monocytes Not Reportable Absolute Eosinophils Not Reportable Absolute Basophils Not Reportable Sodium 136.2 L Potassium 5.0 Chloride 102 Carbon Dioxide 21 L Anion Gap 13 BUN 32 H Creatinine 1.79 H Est GFR ( Amer) 45 L Est GFR (Non-Af Amer) 37 L Glucose 156 H Calcium 9.6 Total Bilirubin 1.5 H AST 20 ALT 26 Alkaline Phosphatase 70 Total Protein 6.8 Albumin 3.9 TSH Urine Color Urine Appearance Urine pH Ur Specific [place] Urine Protein Urine Glucose (UA) Urine Ketones Urine Blood Urine Nitrite Ur Leukocyte Esterase Urine WBC (Auto) Urine RBC (Auto) Stool Occult Blood Stool for White Cells 07/26/18 07/26/18 06:28 06:28 WBC RBC Hgb Hct MCV MCH MCHC RDW Plt Count Seg Neutrophils % Lymphocytes % Monocytes % Eosinophils % Basophils % Absolute Neutrophils Absolute Lymphocytes Absolute Monocytes Absolute Eosinophils Absolute Basophils Sodium 134.8 L Potassium 4.6 Chloride 105 Carbon Dioxide 19 L Anion Gap 11 BUN 40 H Creatinine 2.39 H Est GFR ( Amer) 32 L Est GFR (Non-Af Amer) 26 L Glucose 152 H Calcium 8.5 Total Bilirubin AST ALT Alkaline Phosphatase Total Protein Albumin TSH 1.50 Urine Color Urine Appearance Urine pH Ur Specific [place] Urine Protein Urine Glucose (UA) Urine Ketones Urine Blood Urine Nitrite Ur Leukocyte Esterase Urine WBC (Auto) Urine RBC (Auto) Stool Occult Blood Stool for White Cells Assessment and Plan - Diagnosis (1) C. difficile diarrhea Is this a current diagnosis for this admission?: Yes (2) Acute kidney injury superimposed on CKD Is this a current diagnosis for this admission?: Yes (3) CAD (coronary artery disease) Is this a current diagnosis for this admission?: Yes (4) Diabetes Qualifiers: Diabetes mellitus type: type 2 Diabetes mellitus complication status: without complication Is this a current diagnosis for this admission?: Yes (5) Hypertension Qualifiers: Hypertension type: essential hypertension Qualified Code(s): I10 - Essential (primary) hypertension Is this a current diagnosis for this admission?: Yes - Plan Summary Plan Summary: Significance possible recurrence versus undertreated. Will continue Vanco 125 m g every 6 hours. Of note is that Protonix was discontinued. Renal function worse today. Patient concerned about aggressive fluid. Will increase IV fluid to 100 mg/h x 5 hours, then continue at 50 ml/h (patient previously received 500 ml per last night ED yesterday was on 30 mm/h overnight). We will continue to hold nephrotoxic medication.
[2018-07-26] MEDS ORDERED: NORMAL SALINE 500 ML IV ONE ×2 (18:15→23:15)
[2018-07-26] MEDS: ATORVASTATIN CALCIUM 40 MG TABLET PO SCH (21:54)
[2018-07-27] MEDS: VANCOMYCIN HCL INJ 500 MG VIAL PO SCH ×4 (03:21→22:53)
[2018-07-27 07:57] LABS: ABSOLUTE EOSINOPHILS # (AUTO) 0.1 10^3/uL (0.0-0.6); ABSOLUTE LYMPHOCYTES (AUTO) 0.8 10^3/uL (0.5-4.7); ABSOLUTE NEUT (AUTO) 6.4 10^3/uL (1.7-8.2); BASOPHILS % (AUTO) 0.2 % (0-2); EOSINOPHILS % (AUTO) 1.5 % (0-6); HEMATOCRIT 32.8 % (37.9-51.0); HEMOGLOBIN 11.2 g/dL (13.5-17.0); LYMPHOCYTES % (AUTO) 10.1 % (13-45); MEAN CORPUSCULAR HEMOGLOBIN 31.5 pg (27.0-33.4); MEAN CORPUSCULAR HGB CONC 34.3 g/dL (32.0-36.0); MEAN CORPUSCULAR VOLUME 92 fl (80-97); MONOCYTES % (AUTO) 11.8 % (3-13); PLATELET COUNT 177 10^3/uL (150-450); RED BLOOD COUNT 3.57 10^6/uL (4.35-5.55); RED CELL DISTRIBUTION WIDTH 14.7 % (11.5-14.0); SEGMENTED NEUTROPHILS % (AUTO) 76.4 % (42-78); TOTAL CELLS COUNTED % (AUTO) 100 %; WHITE BLOOD COUNT 8.4 10^3/uL (4.0-10.5)
[2018-07-27 08:16] LABS: ANION GAP 8 (5-19); BLOOD UREA NITROGEN 38 mg/dL (7-20); CALCIUM 8.3 mg/dL (8.4-10.2); CARBON DIOXIDE 20 mmol/L (22-30); CHLORIDE 105 mmol/L (98-107); GLUCOSE 139 mg/dL (75-110); POTASSIUM 4.4 mmol/L (3.6-5.0); SODIUM 132.7 mmol/L (137-145)
[2018-07-27] MEDS: RANOLAZINE 500 MG TAB.SR.12H PO SCH ×2 (11:38→17:14)
[2018-07-27] MEDS: ASPIRIN 81 MG TABLET, ENT COATED PO SCH (11:38)
[2018-07-27] MEDS: TAMSULOSIN HCL 0.4 MG CAP.SR.24H PO SCH (11:39)
[2018-07-27] MEDS: AMLODIPINE BESYLATE 5 MG TABLET PO SCH (11:39)
[2018-07-27] MEDS: ALPRAZOLAM 0.5 MG TABLET PO SCH ×2 (11:39→22:54)
[2018-07-27] MEDS: FINASTERIDE 5 MG TABLET PO SCH (11:40)
[2018-07-27] MEDS: PIOGLITAZONE HCL 15 MG TABLET PO SCH (11:40)
[2018-07-27] MEDS: ENOXAPARIN SODIUM INJ 30 MG/0.3 ML DISP.SYRIN SUBCUT SCH (11:41)
[2018-07-27] MEDS ORDERED: NORMAL SALINE 1000 ML 1,000 ML IV ONE (17:25)
--- NOTE | 2018-07-27 19:15 | PDOC PROGRESS REPORT ---
Subjective Progress Note for:: 07/27/18 Subjective:: 78-year-old old male recently admitted and treated for C. difficile. Now readmitted to observation for explosive diarrhea and dehydration/acute on chronic kidney disease. Diarrhea has improved overnight, eating and drinking better. Denies chest pain or shortness of breath, no palpitations. No fever or chills. No significant abdominal pain. No nausea or vomiting. Reason For Visit: NEIL,DIARRHEA,C DIFF Physical Exam Vital Signs: Temp Pulse Resp BP Pulse Ox 97.7 F 64 20 111/93 H 97 07/27/18 16:10 07/27/18 16:10 07/27/18 16:10 07/27/18 16:10 07/27/18 16:10 Intake & Output 07/26/18 07/27/18 07/28/18 06:59 06:59 06:59 Intake Total 1580 716 672 Balance 1580 716 672 Weight 86.9 kg 86.9 kg 86.9 kg GEN: NAD, well-developed, well-nourished HEENT: Oral mucosa moist CV: RRR, NL S1S2 LUNGS: CTA bilaterally ABDOMEN Soft, NT, +BS EXTERMITIES: No e/c/c NEURO: Alert, oriented x3, nonfocal Results Laboratory Results: 07/27/18 07:00 07/27/18 07:00 07/27/18 07/27/18 07:00 07:00 WBC 8.4 RBC 3.57 L Hgb 11.2 L Hct 32.8 L MCV 92 MCH 31.5 MCHC 34.3 RDW 14.7 H Plt Count 177 Seg Neutrophils % 76.4 Lymphocytes % 10.1 L Monocytes % 11.8 Eosinophils % 1.5 Basophils % 0.2 Absolute Neutrophils 6.4 Absolute Lymphocytes 0.8 Absolute Monocytes 1.0 Absolute Eosinophils 0.1 Absolute Basophils 0.0 Sodium 132.7 L Potassium 4.4 Chloride 105 Carbon Dioxide 20 L Anion Gap 8 BUN 38 H Creatinine 2.13 H Est GFR ( Amer) 37 L Est GFR (Non-Af Amer) 30 L Glucose 139 H Calcium 8.3 L Assessment and Plan - Diagnosis (1) C. difficile diarrhea Is this a current diagnosis for this admission?: Yes (2) Acute kidney injury superimposed on CKD Is this a current diagnosis for this admission?: Yes (3) CAD (coronary artery disease) Is this a current diagnosis for this admission?: Yes (4) Diabetes Qualifiers: Diabetes mellitus type: type 2 Diabetes mellitus complication status: without complication Is this a current diagnosis for this admission?: Yes (5) Hypertension Qualifiers: Hypertension type: essential hypertension Qualified Code(s): I10 - E ssential (primary) hypertension Is this a current diagnosis for this admission?: Yes - Plan Summary Plan Summary: C. difficile possible recurrence versus undertreated. Will continue Vanco 125 mg every 6 hours--he will needed at least 14 days course this time--previously received 10 days course. Of note is that Protonix was discontinued. Renal function improving today, but not baseline. Patient and concerned about aggressive fluids, given apparent history of CHF. Will increase IV fluid to 70 hours times 1 L. Please monitor for CHF. We will continue to hold nephrotoxic medication. Leukocytosis has resolved. Follow-up CBC and Chem-7 in a.m.
[2018-07-27] MEDS: ATORVASTATIN CALCIUM 40 MG TABLET PO SCH (22:54)
[2018-07-28] MEDS: VANCOMYCIN HCL INJ 500 MG VIAL PO SCH ×3 (04:26→15:15)
[2018-07-28 06:14] LABS: ABSOLUTE EOSINOPHILS # (AUTO) 0.2 10^3/uL (0.0-0.6); ABSOLUTE LYMPHOCYTES (AUTO) 0.8 10^3/uL (0.5-4.7); ABSOLUTE MONOCYTES (AUTO) 0.7 10^3/uL (0.1-1.4); ABSOLUTE NEUT (AUTO) 3.5 10^3/uL (1.7-8.2); BASOPHILS % (AUTO) 0.5 % (0-2); EOSINOPHILS % (AUTO) 3.5 % (0-6); HEMATOCRIT 30.8 % (37.9-51.0); HEMOGLOBIN 10.7 g/dL (13.5-17.0); LYMPHOCYTES % (AUTO) 15.9 % (13-45); MEAN CORPUSCULAR HEMOGLOBIN 31.9 pg (27.0-33.4); MEAN CORPUSCULAR HGB CONC 34.8 g/dL (32.0-36.0); MEAN CORPUSCULAR VOLUME 92 fl (80-97); MONOCYTES % (AUTO) 13.8 % (3-13); PLATELET COUNT 171 10^3/uL (150-450); RED BLOOD COUNT 3.36 10^6/uL (4.35-5.55); RED CELL DISTRIBUTION WIDTH 15.1 % (11.5-14.0); SEGMENTED NEUTROPHILS % (AUTO) 66.3 % (42-78); TOTAL CELLS COUNTED % (AUTO) 100 %; WHITE BLOOD COUNT 5.3 10^3/uL (4.0-10.5)
[2018-07-28 06:33] LABS: ANION GAP 9 (5-19); BLOOD UREA NITROGEN 28 mg/dL (7-20); CALCIUM 8.3 mg/dL (8.4-10.2); CARBON DIOXIDE 21 mmol/L (22-30); CHLORIDE 106 mmol/L (98-107); GLUCOSE 156 mg/dL (75-110); POTASSIUM 4.5 mmol/L (3.6-5.0); SODIUM 135.6 mmol/L (137-145)
[2018-07-28] MEDS: FINASTERIDE 5 MG TABLET PO SCH (10:05)
[2018-07-28] MEDS: TAMSULOSIN HCL 0.4 MG CAP.SR.24H PO SCH (10:05)
[2018-07-28] MEDS: AMLODIPINE BESYLATE 5 MG TABLET PO SCH (10:05)
[2018-07-28] MEDS: ENOXAPARIN SODIUM INJ 30 MG/0.3 ML DISP.SYRIN SUBCUT SCH (10:05)
[2018-07-28] MEDS: PIOGLITAZONE HCL 15 MG TABLET PO SCH (10:05)
[2018-07-28] MEDS: ASPIRIN 81 MG TABLET, ENT COATED PO SCH (10:05)
[2018-07-28] MEDS: ALPRAZOLAM 0.5 MG TABLET PO SCH ×2 (10:05→21:58)
[2018-07-28] MEDS: RANOLAZINE 500 MG TAB.SR.12H PO SCH ×2 (10:05→17:47)
[2018-07-28] MEDS: LACTOBACILLUS ACIDOPHILUS 250 MG TAB PO SCH (17:46)
--- NOTE | 2018-07-28 17:54 | PDOC PROGRESS REPORT ---
Subjective Progress Note for:: 07/28/18 Subjective:: Less pain. Diarrhea is significantly decreased. Multiple questions about other comorbidities. Reason For Visit: NEIL,DIARRHEA,C DIFF Physical Exam Vital Signs: Temp Pulse Resp BP Pulse Ox 97.7 F 59 L 17 123/81 95 07/28/18 16:54 07/28/18 16:54 07/28/18 16:54 07/28/18 16:54 07/28/18 16:54 Intake & Output 07/27/18 07/28/18 07/29/18 06:59 06:59 06:59 Intake Total 716 1112 502 Balance 716 1112 502 Weight 86.9 kg 90.5 kg General appearance: PRESENT: no acute distress, cooperative, well-developed Head exam: PRESENT: atraumatic, normocephalic Eye exam: PRESENT: conjunctiva pink. ABSENT: scleral icterus Ear exam: PRESENT: normal external ear exam Mouth exam: PRESENT: dry mucosa, tongue midline Neck exam: ABSENT: JVD, lymphadenopathy Respiratory exam: PRESENT: rales - Faint rales at both bases., symmetrical, unlabored. ABSENT: chest wall tenderness, rhonchi, wheezes Cardiovascular exam: PRESENT: RRR, +S1, +S2, other - Positive S3 GI/Abdominal exam: PRESENT: distended - Slightly, hypoactive bowel sounds, soft. ABSENT: tenderness Rectal exam: PRESENT: deferred Gentrourinary exam: ABSENT: indwelling catheter Extremities exam: ABSENT: pedal edema Musculoskeletal exam: PRESENT: normal inspection Neurological exam: PRESENT: alert, awake, oriented to person, oriented to place, oriented to time, oriented to situation, CN II-XII grossly intact Psychiatric exam: PRESENT: appropriate affect, normal mood. ABSENT: agitated, anxious Focused psych exam: ABSENT: delusional, restlessness Results Laboratory Results: 07/28/18 05:59 07/28/18 05:59 07/28/18 07/28/18 05:59 05:59 WBC 5.3 RBC 3.36 L Hgb 10.7 L Hct 30.8 L MCV 92 MCH 31.9 MCHC 34.8 RDW 15.1 H Plt Count 171 Seg Neutrophils % 66.3 Lymphocytes % 15.9 Monocytes % 13.8 H Eosinophils % 3.5 Basophils % 0.5 Absolute Neutrophils 3.5 Absolute Lymphocytes 0.8 Absolute Monocytes 0.7 Absolute Eosinophils 0.2 Absolute Basophils 0.0 Sodium 135.6 L Potassium 4.5 Chloride 106 Carbon Dioxide 21 L Anion Gap 9 BUN 28 H Creatinine 1.77 H Est GFR ( Amer) 45 L Est GFR (Non-Af Amer) 37 L Glucose 156 H Calcium 8.3 L 07/25/18 12:52 Stool - Stool - Final 07/25/18 12:52 Stool - Stool Stool Culture - Final NO SALMONELLA, SHIGELLA, CAMPYLOBACTER, OR E.COLI 0157 RECOVERED. NEGATIVE FOR SHIGA TOXINS 1&2. Assessment and Plan - Diagnosis (1) C. difficile diarrhea Is this a current diagnosis for this admission?: Yes Plan: The patient is feeling better today. He remains on oral vancomycin. He still has loose stool. I have added a probiotic to his regimen. We had a long discussion about discharge. I told him that as long as his stools are watery or loose he is still at risk of being contagious. I explained that typically we hold patient's until there is a formed stool. If his loose stool persists thr ough the end of his antibiotics we will recheck his stool for C. difficile. (2) Acute kidney injury superimposed on CKD Is this a current diagnosis for this admission?: Yes Plan: He has an appointment with nephrology August 11. He states that he first was made aware of kidney issues in April. It appears that he is back to baseline at this time. Continue to monitor renal function and adjust medications if clinically indicated. Without a Garcia catheter it is very hard to keep tract of intake and output but he is producing urine. (3) Diabetes Qualifiers: Diabetes mellitus type: type 2 Diabetes mellitus complication status: without complication Is this a current diagnosis for this admission?: Yes Plan: Continue pioglitazone. Continue diabetic diet. The patient's fingersticks have all been acceptable. None have been over 200. He is also on statin therapy and an JESICA inhibitor. These will all be resumed tomorrow. (4) Hypertension Qualifiers: Hypertension type: essential hypertension Qualified Code(s): I10 - Essentia l (primary) hypertension Is this a current diagnosis for this admission?: Yes Plan: Excellent blood pressure control. Continue current medications. (5) CAD (coronary artery disease) Qualifiers: Coronary Disease-Associated Artery/Lesion type: kaw artery Three Affiliated vs. transplanted heart: kaw heart Associated angina: without angina Qualified Code(s): I25.10 - Atherosclerotic heart disease of kaw coronary artery without angina pectoris Is this a current diagnosis for this admission?: Yes Plan: Patient has a history of coronary artery disease. There were questions about his heart function as well. The family is aware that he needs to remain hydrated. We are monitoring for evidence of failure. He did have fine rales at both bases but I believe this is more atelectatic. I have ordered an incentive spirometer. He normally is on furosemide for his blood pressure. I will resume furosemide dosing as of tomorrow. He is on statin therapy, aspirin and amlodipine as well. - Time Time Spent with patient: 15-24 minutes Medications reviewed and adjusted accordingly: Yes Anticipated discharge: Home
[2018-07-28] MEDS: ATORVASTATIN CALCIUM 40 MG TABLET PO SCH (21:59)
[2018-07-28] MEDS ORDERED: VANCOMYCIN HCL INJ 500 MG VIAL PO ONE (22:30)
[2018-07-29] MEDS: VANCOMYCIN HCL INJ 500 MG VIAL PO SCH ×4 (04:00→15:58)
[2018-07-29 07:05] LABS: ABSOLUTE EOSINOPHILS # (AUTO) 0.2 10^3/uL (0.0-0.6); ABSOLUTE LYMPHOCYTES (AUTO) 0.8 10^3/uL (0.5-4.7); ABSOLUTE MONOCYTES (AUTO) 0.7 10^3/uL (0.1-1.4); BASOPHILS % (AUTO) 0.6 % (0-2); EOSINOPHILS % (AUTO) 3.7 % (0-6); HEMATOCRIT 32.1 % (37.9-51.0); HEMOGLOBIN 11.3 g/dL (13.5-17.0); LYMPHOCYTES % (AUTO) 16.9 % (13-45); MEAN CORPUSCULAR HEMOGLOBIN 31.8 pg (27.0-33.4); MEAN CORPUSCULAR HGB CONC 35.1 g/dL (32.0-36.0); MEAN CORPUSCULAR VOLUME 91 fl (80-97); MONOCYTES % (AUTO) 14.2 % (3-13); PLATELET COUNT 190 10^3/uL (150-450); RED BLOOD COUNT 3.54 10^6/uL (4.35-5.55); RED CELL DISTRIBUTION WIDTH 14.9 % (11.5-14.0); SEGMENTED NEUTROPHILS % (AUTO) 64.6 % (42-78); TOTAL CELLS COUNTED % (AUTO) 100 %; WHITE BLOOD COUNT 4.7 10^3/uL (4.0-10.5)
[2018-07-29 07:28] LABS: ALANINE AMINOTRANSFERASE 36 U/L (21-72); ALBUMIN 2.6 g/dL (3.5-5.0); ALKALINE PHOSPHATASE 58 U/L (38-126); ANION GAP 7 (5-19); ASPARTATE AMINO TRANSFERASE 13 U/L (17-59); BILIRUBIN,DIRECT 0.2 mg/dL (0.0-0.4); BILIRUBIN,TOTAL 0.7 mg/dL (0.2-1.3); BLOOD UREA NITROGEN 21 mg/dL (7-20); CALCIUM 8.3 mg/dL (8.4-10.2); CARBON DIOXIDE 20 mmol/L (22-30); CHLORIDE 108 mmol/L (98-107); GLUCOSE 157 mg/dL (75-110); PHOSPHORUS 3.3 mg/dL (2.5-4.5); POTASSIUM 4.5 mmol/L (3.6-5.0); SODIUM 134.9 mmol/L (137-145)
[2018-07-29] MEDS: ALPRAZOLAM 0.5 MG TABLET PO SCH (09:28)
[2018-07-29] MEDS: TAMSULOSIN HCL 0.4 MG CAP.SR.24H PO SCH (09:28)
[2018-07-29] MEDS: RANOLAZINE 500 MG TAB.SR.12H PO SCH (09:28)
[2018-07-29] MEDS: LACTOBACILLUS ACIDOPHILUS 250 MG TAB PO SCH (09:29)
[2018-07-29] MEDS: AMLODIPINE BESYLATE 5 MG TABLET PO SCH (09:29)
[2018-07-29] MEDS: ASPIRIN 81 MG TABLET, ENT COATED PO SCH (09:29)
[2018-07-29] MEDS: FINASTERIDE 5 MG TABLET PO SCH (09:31)
[2018-07-29] MEDS: ENOXAPARIN SODIUM INJ 30 MG/0.3 ML DISP.SYRIN SUBCUT SCH (09:31)
[2018-07-29] MEDS: PIOGLITAZONE HCL 15 MG TABLET PO SCH (09:31)
[2018-07-29] MEDS ORDERED: LISINOPRIL 5 MG TABLET PO SCH (10:00)
[2018-07-29] MEDS ORDERED: FUROSEMIDE 20 MG TABLET PO SCH (10:00)
[2018-07-29 16:30] VITALS: BP 112/68
--- NOTE | 2018-07-30 09:45 | PDOC DISCHARGE SUMMARY ---
General - Admit/Disc Date/PCP Admission Date/Primary Care Provider: 07/27/18 13:40 Discharge Date: 07/30/18 - Discharge Diagnosis (1) C. difficile diarrhea Is this a current diagnosis for this admission?: Yes Summary: He now has formed stools. He will complete a course of po vancomycin (2) Acute on chronic renal failure Is this a current diagnosis for this admission?: Yes Summary: Secondary to dehydration. Much improved (3) CAD (coronary artery disease) Is this a current diagnosis for this admission?: Yes Summary: Continue home regimen (4) Diabetes Is this a current diagnosis for this admission?: Yes Summary: Continue home regimen (5) Hypertension Is this a current diagnosis for this admission?: Yes Summary: Stable. Continue home regimen (6) Anemia Is this a current diagnosis for this admission?: Yes (7) Hyponatremia Is this a current diagnosis for this admission?: Yes (8) Full code status Is this a current diagnosis for this admission?: Yes - Additional Information Discharge Diet: Other (Comments) Discharge Activity: Activity As Tolerated, Balance Activity w/Rest, Slowly Increase Activity Prescriptions: Vancomycin HCl [Vancocin Inj 500 mg Vial] 125 mg PO Q6A #48 vial Home Medications: Alprazolam 1 mg PO BIDP PRN 11/19/17 Amlodipine Besylate 5 mg PO DAILY 11/19/17 Aspirin [Aspirin EC] 81 mg PO DAILY 11/19/17 Atorvastatin Calcium 40 mg PO QHS 11/19/17 Finasteride 5 mg PO DAILY 11/19/17 Lisinopril 2.5 mg PO DAILY 11/19/17 Pantoprazole Sodium 40 mg PO DAILY 11/19/17 Pioglitazone HCl 15 mg PO DAILY 11/19/17 Ranolazine [Ranexa] 500 mg PO BID 11/19/17 Tamsulosin HCl 0.4 mg PO DAILY 11/19/17 Furosemide [Lasix 20 mg Tablet] 10 mg PO DAILY 07/26/18 Vancomycin HCl [Vancocin Inj 500 mg Vial] 125 mg PO Q6A #48 vial 07/29/18 History of Present Illness History of Present Illness: SHRUTHI EVANS is a 78 year old male history of CAD, reported CHF, diabetes, recently admitted to this hospital for C diff and discharged 07/12/18 on p.o. Vanco to complete a total of 10 days treatment. Patient states he did well and 4 days ago he began to have formed stools. Last night however, he again d eveloped explosive diarrhea. He has had about 8 bowel movements in the past 12 hours, large volume, watery and malodorous. Blood cell count abdominal cramps. He came to the ED where he had episode of nausea and vomiting. Evaluation in the ED significant for PCR stool positive for C. difficile. Creatinine with elevated at 1.79 (baseline 1.29 by 07/11/18). Patient given 500 ml bolus of IV fluid and referred for admission. Hospital Course Hospital Course: He was admitted to the hospital. He was started again on po vancomycin. He recieved IV fluids and his renal function slowly improved. His diarrhea resolved and he began to have formed stools. He will complete a course of vancomycin as an outpatient and he will need close outpatient followup. I discussed this with his daughter. She will make an appointment with his dr in [place] tomorrow. Physical Exam Vital Signs: Temp Pulse Resp BP Pulse Ox 98.0 F 66 18 112/68 98 07/29/18 17:55 07/29/18 17:55 07/29/18 17:55 07/29/18 17:55 07/29/18 17:55 Intake & Output 07/29/18 07/30/18 07/31/18 06:59 06:59 06:59 Intake Total 762 Balance 762 Weight 90.5 kg 90.5 kg General appearance: PRESENT: no acute distress, well-developed, well-nourished Head exam: PRESENT: atraumatic, normocephalic Mouth exam: PRESENT: moist, tongue midline Respiratory exam: PRESENT: clear to auscultation annita. ABSENT: rales, rhonchi, wheezes Cardiovascular exam: PRESENT: RRR. ABSENT: diastolic murmur, rubs, systolic murmur GI/Abdominal exam: PRESENT: normal bowel sounds, soft. ABSENT: distended, guarding, mass, organolmegaly, rebound, tenderness Rectal exam: PRESENT: deferred Extremities exam: PRESENT: full ROM. ABSENT: calf tenderness, clubbing, pedal edema Neurological exam: PRESENT: alert, awake, oriented to person, oriented to place, oriented to time, oriented to situation, CN II-XII grossly intact. ABSENT: motor sensory deficit Psychiatric exam: PRESENT: appropriate affect, normal mood. ABSENT: homicidal ideation, suicidal ideation Skin exam: PRESENT: dry, intact, warm. ABSENT: cyanosis, rash Results Laboratory Results: 07/29/18 06:37 07/29/18 06:37 07/29/18 06:37 NT-Pro-B Natriuret Pep 1380 H Qualifiers - * PATIENT BEING DISCHARGED WITH ANY OF THE FOLLOWING DIAGNOSIS: No Plan Time Spent: Greater than 30 Minutes
--- NOTE | 2018-09-08 13:42 | Progress Note ---
Provider Note Provider Note: Addendum to discharge summary dated 07/30/2018 The patient had acute on chronic renal failure stage 3
--- NOTE | 2018-09-11 12:44 | Progress Note ---
Provider Note Provider Note: The patient had parxysmal atrial fibrillation
== END 2018-07-29 18:43 | disposition home or self-care (01) | DRG 372 ==
LOC: ER 11:56 → INTOOBSV 15:17 → EH 15:17 → 4S 15:53 → OBSVTOIN 07-27 13:40
PROVIDERS: ADMIT Family Medicine; ATTEND Family Medicine
DX: A04.71 Enterocolitis due to Clostridium difficile, recurrent (principal); N17.9 Acute kidney failure, unspecified; E87.1 Hypo-osmolality and hyponatremia; E86.0 Dehydration; I48.0 Paroxysmal atrial fibrillation; E11.22 Type 2 diabetes mellitus with diabetic chronic kidney disease; I25.10 Atherosclerotic heart disease of native coronary artery without angina pectoris; I12.9 Hypertensive chronic kidney disease with stage 1 through stage 4 chronic kidney disease, or unspecified chronic kidney disease; N18.3 Chronic kidney disease, stage 3 (moderate); D63.1 Anemia in chronic kidney disease; E78.5 Hyperlipidemia, unspecified; M16.0 Bilateral primary osteoarthritis of hip; M47.9 Spondylosis, unspecified; Z79.82 Long term (current) use of aspirin; Z79.899 Other long term (current) drug therapy; Z90.49 Acquired absence of other specified parts of digestive tract; Z87.891 Personal history of nicotine dependence; Z82.49 Family history of ischemic heart disease and other diseases of the circulatory system
CPT/HCPCS: 36415; 80048; 80053; 80069; 80076; 81001; 82272; 82962; 83735; 83880; 84443; 85025; 85027; 87045; 87205; 87493; 89055; 94799; 96360; 99284; G0378; J1650; J3370; J3490; J7030; J7040; S0119

== ENCOUNTER → 2018-08-17 | Outpatient (CLI) | payer MEDICARE, MEDICAID ==
--- NOTE | 2018-08-17 13:22 | RADIOLOGY REPORT (SQ) ---
EXAM DESCRIPTION: U/S RETROPERITON (RENAL/AORTA) COMPLETED DATE/TIME: 08/17/2018 12:57 pm REASON FOR STUDY: CKD III (N18.3) N18.3 CHRONIC KIDNEY DISEASE, STAGE 3 (MODERATE) N19 UNSPECIFIED KIDNEY FAILURE COMPARISON: None. TECHNIQUE: Dynamic and static grayscale images acquired of the kidneys and bladder and recorded on P ACS. Additional selected color Doppler and spectral images recorded. LIMITATIONS: None. FINDINGS: RIGHT KIDNEY: The right kidney measures 9.0 cm in length, normal size. Normal echogenicit y. No solid or suspicious masses. No hydronephrosis. No calcifications. LEFT KIDNEY: The left kidney measures 10.1 cm in length, normal size. Normal echogenicity. No solid or suspicious masses. No hydronephrosis. No calcifications. BLADDER: No masses. Urinary bladder diverticulum is suggested on the prevoid images. OTHER FINDINGS: No other significant finding. IMPRESSION: 1. NORMAL RENAL ULTRASOUND. 2. Additional finding as above. TECHNICAL DOCUMENTATION: JOB ID: [id number] [employer]- All Rights Reserved Reading location - IP/workstation name: [email or web address]
== END ==
LOC: RAD 10:48
PROVIDERS: ATTEND Physician Assistant Medical
DX: N18.3 Chronic kidney disease, stage 3 (moderate) (principal)
CPT/HCPCS: 76770

== ENCOUNTER → 2018-11-06 | Outpatient (CLI) | payer MEDICARE, MEDICAID ==
[2018-11-06 16:45] LABS: HEMATOCRIT 39.1 % (37.9-51.0); HEMOGLOBIN 13.5 g/dL (13.5-17.0); MEAN CORPUSCULAR HEMOGLOBIN 31.9 pg (27.0-33.4); MEAN CORPUSCULAR HGB CONC 34.4 g/dL (32.0-36.0); MEAN CORPUSCULAR VOLUME 93 fl (80-97); PLATELET COUNT 182 10^3/uL (150-450); RED BLOOD COUNT 4.23 10^6/uL (4.35-5.55); RED CELL DISTRIBUTION WIDTH 14.2 % (11.5-14.0); WHITE BLOOD COUNT 6.5 10^3/uL (4.0-10.5)
[2018-11-06 17:03] LABS: ANION GAP 13 (5-19); BLOOD UREA NITROGEN 33 mg/dL (7-20); CALCIUM 10.1 mg/dL (8.4-10.2); CARBON DIOXIDE 24 mmol/L (22-30); CHLORIDE 101 mmol/L (98-107); GLUCOSE 181 mg/dL (75-110); PHOSPHORUS 3.8 mg/dL (2.5-4.5); SODIUM 138.4 mmol/L (137-145)
[2018-11-06 17:04] LABS: POTASSIUM 4.8 mmol/L (3.6-5.0)
[2018-11-06 17:30] LABS: APPEARANCE,URINE SLIGHTLY-CLOUDY; BILIRUBIN,URINE NEGATIVE (NEGATIVE); COLOR,URINE YELLOW; GLUCOSE, URINE >=500 mg/dL (NEGATIVE); KETONES,URINE NEGATIVE (NEGATIVE); LEUKOCYTE ESTERASE,URINE NEGATIVE (NEGATIVE); NITRITE,URINE NEGATIVE (NEGATIVE); PROTEIN,URINE NEGATIVE (NEGATIVE); URINE SPECIFIC GRAVITY 1.016; UROBILINOGEN,URINE NEGATIVE mg/dL (<2.0)
[2018-11-06 17:49] LABS: URINE CREATININE 209.1 mg/dL (22-328); URINE PROTEIN 9.6 mg/dL (<12)
== END ==
LOC: OD 16:17
PROVIDERS: ATTEND Physician Assistant Medical
DX: I12.9 Hypertensive chronic kidney disease with stage 1 through stage 4 chronic kidney disease, or unspecified chronic kidney disease (principal); N18.3 Chronic kidney disease, stage 3 (moderate); R60.9 Edema, unspecified; E11.22 Type 2 diabetes mellitus with diabetic chronic kidney disease
CPT/HCPCS: 36415; 80048; 81001; 82570; 83970; 84100; 84156; 85027